=== PATIENT | female | born 1955 | race Caucasian/White ===

== ENCOUNTER → 2020-03-31 15:38 | Outpatient (BNVA) | payer OTHER, SELFPAY | PROVIDERS: PCP Internal Medicine; Referring Provider Internal Medicine; Visit Provider Internal Medicine | DX: I42.9 Cardiomyopathy, unspecified (principal); D68.51 Activated protein C resistance; Z51.81 Encounter for therapeutic drug level monitoring; Z79.01 Long term (current) use of anticoagulants | CPT/HCPCS: 99211 ==

== ENCOUNTER → 2020-03-31 15:38 | Outpatient (BNVA) | payer OTHER, SELFPAY | PROVIDERS: PCP Internal Medicine; Referring Provider Internal Medicine; Visit Provider Internal Medicine | DX: D68.51 Activated protein C resistance (principal); I42.9 Cardiomyopathy, unspecified; Z51.81 Encounter for therapeutic drug level monitoring; Z79.01 Long term (current) use of anticoagulants | CPT/HCPCS: 85610 ==

== ENCOUNTER → 2020-04-11 16:02 | Outpatient (BNVA) | payer OTHER, SELFPAY | PROVIDERS: PCP Internal Medicine; Visit Provider Internal Medicine | DX: D68.51 Activated protein C resistance (principal); I42.9 Cardiomyopathy, unspecified; Z51.81 Encounter for therapeutic drug level monitoring; Z79.01 Long term (current) use of anticoagulants | CPT/HCPCS: 85610; 99211 ==

== ENCOUNTER → 2020-04-18 16:06 | Outpatient (BNVA) | payer OTHER, SELFPAY | PROVIDERS: PCP Internal Medicine; Referring Provider Internal Medicine; Visit Provider Internal Medicine | DX: D68.51 Activated protein C resistance (principal); I42.9 Cardiomyopathy, unspecified; Z51.81 Encounter for therapeutic drug level monitoring; Z79.01 Long term (current) use of anticoagulants | CPT/HCPCS: 85610; 99211 ==

== ENCOUNTER 2020-05-09 16:07 | Outpatient (REF) | payer OTHER, SELFPAY | END 2020-05-09 16:08 | disposition home or self-care (01) | LOC: HO.LAB 16:07 | PROVIDERS: PCP Internal Medicine; Visit Provider Internal Medicine | DX: Z79.01 Long term (current) use of anticoagulants (principal) | CPT/HCPCS: 85610 ==

== ENCOUNTER 2020-05-09 16:22 | Outpatient (REF) | payer OTHER, SELFPAY ==
[2020-05-09 17:51] LABS: INTERNATIONAL NORM RATIO 4.9 (0.9-1.1); Prothrombin Time 59.5 SEC (10.8-13.0)
== END 2020-05-09 16:23 | disposition home or self-care (01) ==
LOC: HO.LAB 16:22
PROVIDERS: Visit Provider Internal Medicine
DX: Z79.01 Long term (current) use of anticoagulants (principal)
CPT/HCPCS: 36415; 85610

== ENCOUNTER → 2020-05-12 15:55 | Outpatient (BNVA) | payer OTHER, SELFPAY | PROVIDERS: PCP Internal Medicine; Visit Provider Internal Medicine | DX: D68.51 Activated protein C resistance (principal); I42.9 Cardiomyopathy, unspecified; Z51.81 Encounter for therapeutic drug level monitoring; Z79.01 Long term (current) use of anticoagulants | CPT/HCPCS: 85610; 99211 ==

== ENCOUNTER → 2020-05-30 15:47 | Outpatient (BNVA) | payer OTHER, SELFPAY | PROVIDERS: PCP Internal Medicine; Visit Provider Internal Medicine | DX: D68.51 Activated protein C resistance (principal); I42.9 Cardiomyopathy, unspecified; Z51.81 Encounter for therapeutic drug level monitoring; Z79.01 Long term (current) use of anticoagulants | CPT/HCPCS: 85610; 99211 ==

== ENCOUNTER → 2020-06-09 09:02 | Outpatient (BNVA) | payer OTHER, SELFPAY | PROVIDERS: PCP Internal Medicine; Visit Provider Internal Medicine | DX: D68.51 Activated protein C resistance (principal); I42.9 Cardiomyopathy, unspecified; Z51.81 Encounter for therapeutic drug level monitoring; Z79.01 Long term (current) use of anticoagulants | CPT/HCPCS: 85610; 99211 ==

== ENCOUNTER → 2020-06-28 15:44 | Outpatient (BNVA) | payer OTHER, SELFPAY | PROVIDERS: PCP Internal Medicine; Visit Provider Internal Medicine | DX: D68.51 Activated protein C resistance (principal); I42.9 Cardiomyopathy, unspecified; Z51.81 Encounter for therapeutic drug level monitoring; Z79.01 Long term (current) use of anticoagulants | CPT/HCPCS: 85610; 99211 ==

== ENCOUNTER → 2020-07-06 13:44 | Outpatient (BNVA) | payer OTHER, SELFPAY | PROVIDERS: PCP Internal Medicine; Visit Provider Internal Medicine | DX: I42.9 Cardiomyopathy, unspecified (principal); D68.51 Activated protein C resistance; Z79.01 Long term (current) use of anticoagulants; Z51.81 Encounter for therapeutic drug level monitoring | CPT/HCPCS: 85610; 99211 ==

== ENCOUNTER → 2020-07-20 15:42 | Outpatient (BNVA) | payer OTHER, SELFPAY | PROVIDERS: PCP Internal Medicine; Visit Provider Internal Medicine | DX: I42.9 Cardiomyopathy, unspecified (principal); D68.51 Activated protein C resistance; Z51.81 Encounter for therapeutic drug level monitoring; Z79.01 Long term (current) use of anticoagulants | CPT/HCPCS: 85610; 99211 ==

== ENCOUNTER → 2020-08-03 16:00 | Outpatient (BNVA) | payer OTHER, SELFPAY | PROVIDERS: PCP Internal Medicine; Visit Provider Internal Medicine | DX: D68.51 Activated protein C resistance (principal); I42.9 Cardiomyopathy, unspecified; Z51.81 Encounter for therapeutic drug level monitoring; Z79.01 Long term (current) use of anticoagulants | CPT/HCPCS: 85610; 99211 ==

== ENCOUNTER → 2020-08-17 15:47 | Outpatient (BNVA) | payer OTHER, SELFPAY | PROVIDERS: PCP Internal Medicine; Visit Provider Internal Medicine | DX: D68.51 Activated protein C resistance (principal); I42.9 Cardiomyopathy, unspecified; Z51.81 Encounter for therapeutic drug level monitoring; Z79.01 Long term (current) use of anticoagulants | CPT/HCPCS: 85610; 99211 ==

== ENCOUNTER → 2020-08-24 15:59 | Outpatient (BNVA) | payer OTHER, SELFPAY | PROVIDERS: PCP Internal Medicine; Visit Provider Internal Medicine | DX: I42.9 Cardiomyopathy, unspecified (principal); Z51.81 Encounter for therapeutic drug level monitoring; Z79.01 Long term (current) use of anticoagulants | CPT/HCPCS: 85610; 99211 ==

== ENCOUNTER → 2020-09-06 16:04 | Outpatient (BNVA) | payer OTHER, SELFPAY | PROVIDERS: PCP Internal Medicine; Visit Provider Internal Medicine | DX: D68.51 Activated protein C resistance (principal); I42.9 Cardiomyopathy, unspecified; Z51.81 Encounter for therapeutic drug level monitoring; Z79.01 Long term (current) use of anticoagulants | CPT/HCPCS: 85610; 99211 ==

== ENCOUNTER → 2020-10-04 16:03 | Outpatient (BNVA) | payer OTHER, SELFPAY | PROVIDERS: PCP Internal Medicine; Visit Provider Internal Medicine | DX: Z86.718 Personal history of other venous thrombosis and embolism (principal); Z79.01 Long term (current) use of anticoagulants | CPT/HCPCS: 85610; 99211 ==

== ENCOUNTER → 2020-10-25 16:01 | Outpatient (BNVA) | payer OTHER, SELFPAY | PROVIDERS: PCP Internal Medicine; Visit Provider Internal Medicine | DX: Z86.718 Personal history of other venous thrombosis and embolism (principal); Z51.81 Encounter for therapeutic drug level monitoring; Z79.01 Long term (current) use of anticoagulants | CPT/HCPCS: 85610; 99211 ==

== ENCOUNTER → 2020-11-17 13:05 | Outpatient (BNVA) | payer OTHER, SELFPAY | PROVIDERS: PCP Internal Medicine; Visit Provider Internal Medicine | DX: Z86.718 Personal history of other venous thrombosis and embolism (principal); Z51.81 Encounter for therapeutic drug level monitoring; Z79.01 Long term (current) use of anticoagulants | CPT/HCPCS: G0248 ==

== ENCOUNTER → 2020-11-21 08:20 | Outpatient (BNVA) | payer OTHER, SELFPAY | PROVIDERS: PCP Internal Medicine; Visit Provider Internal Medicine ==

== ENCOUNTER → 2020-11-28 08:21 | Outpatient (BNVA) | payer OTHER, SELFPAY | PROVIDERS: PCP Internal Medicine; Visit Provider Internal Medicine ==

== ENCOUNTER → 2020-12-05 08:33 | Outpatient (BNVA) | payer OTHER, SELFPAY | PROVIDERS: PCP Internal Medicine; Visit Provider Internal Medicine ==

== ENCOUNTER → 2020-12-12 14:19 | Outpatient (BNVA) | payer OTHER, SELFPAY | PROVIDERS: PCP Internal Medicine; Visit Provider Internal Medicine ==

== ENCOUNTER → 2020-12-26 09:00 | Outpatient (BNVA) | payer OTHER, SELFPAY | PROVIDERS: PCP Internal Medicine; Visit Provider Internal Medicine ==

== ENCOUNTER → 2021-01-02 08:15 | Outpatient (BNVA) | payer OTHER, SELFPAY | PROVIDERS: PCP Internal Medicine; Visit Provider Internal Medicine ==

== ENCOUNTER → 2021-01-16 11:01 | Outpatient (BNVA) | payer OTHER, SELFPAY | PROVIDERS: PCP Internal Medicine; Visit Provider Internal Medicine ==

== ENCOUNTER → 2021-01-30 17:01 | Outpatient (BNVA) | payer OTHER, SELFPAY | PROVIDERS: PCP Internal Medicine; Visit Provider Internal Medicine ==

== ENCOUNTER 2021-02-08 06:46 | Outpatient (REF) | payer OTHER, SELFPAY ==
[2021-02-08 07:38] LABS: MANUAL DIFF FLAG NO
[2021-02-08 07:40] LABS: Basophils Absolute Auto 0.1 X10*3/uL (0.0-0.2); Basophils Percent Auto 0.9 % (0-2); Eosinophils Absolute Auto 0.2 X10*3/uL (0.0-0.4); Hematocrit 36.4 % (37-47); Imm Gran Abs Auto 0.05 X10*3/uL (0.00-0.03); Imm Gran Pct Auto 0.6 % (0.0-0.4); Lymphocytes Absolute Auto 1.2 X10*3/uL (1.2-4.9); Lymphocytes Percent Auto 15.1 % (20-40); Mean Corpuscular Hemoglobin 30.4 pg (27.0-33.0); Mean Corpuscular Volume 92.2 fL (80-98); Mean Platelet Volume 9.9 fL (9.4-12.3); Monocytes Absolute Auto 0.6 X10*3/uL (0.1-1.2); Monocytes Percent Auto 7.7 % (2-11); Neutrophils Absolute Auto 5.7 X10*3/uL (2.0-8.3); Neutrophils Percent Auto 72.7 % (45-73); Platelet Count 241 X10*3/uL (160-400); Red Blood Count 3.95 X10*6/uL (4.20-5.50); Red Cell Distribution Width 13.6 % (11.0-16.0); White Blood Count 7.9 X10*3/uL (4.8-10.8)
[2021-02-08 07:50] LABS: Estimated Average Glucose 131 mg/dL; Hemoglobin A1c % 6.2 %
[2021-02-08 08:04] LABS: Alanine Aminotransferase 17 U/L (0-31); Albumin Level 4.4 g/dL (3.5-5.0); Alkaline Phosphatase 90 U/L (39-117); Anion Gap 14 (12-20); Aspartate Amino Transferase 17 U/L (5-31); Blood Urea Nitrogen 15 mg/dL (9-16); Calcium 9.2 mg/dL (8.4-10.2); Carbon Dioxide 25 mmol/L (22-29); Chloride 105 mmol/L (96-108); Cholesterol 147 mg/dL; Estimated Glomerular Filt Rate > 60; Glucose Random 139 mg/dL (60-115); HDL Cholesterol 41 mg/dL; LDL Cholesterol Calculated 56 mg/dl; Potassium 4.8 mmol/L (3.3-5.1); Sodium 139 mmol/L (135-145); Triglycerides 254 mg/dL
[2021-02-08 08:05] LABS: B Type Natriuretic Peptide 14 pg/mL (<100)
[2021-02-08 08:24] LABS: Free T4 (Free Thyroxine) 1.05 ng/dL (0.71-1.85); Vitamin D 25-OH Total 29.9 ng/mL (>30)
[2021-02-10 11:50] LABS: Folate 11.5 ng/mL (> or = 4.0); Vitamin B12 348 pg/mL (200-900)
== END 2021-02-08 06:47 | disposition home or self-care (01) ==
LOC: HO.LAB 06:46
PROVIDERS: PCP Internal Medicine; Visit Provider Internal Medicine
DX: I42.0 Dilated cardiomyopathy (principal); I10 Essential (primary) hypertension; R73.02 Impaired glucose tolerance (oral); E03.9 Hypothyroidism, unspecified; E78.00 Pure hypercholesterolemia, unspecified
CPT/HCPCS: 36415; 80053; 80061; 82306; 82607; 82746; 83036; 83880; 84439; 84443; 85025

== ENCOUNTER → 2021-02-13 10:10 | Outpatient (BNVA) | payer OTHER, SELFPAY | PROVIDERS: PCP Internal Medicine; Visit Provider Internal Medicine ==

== ENCOUNTER → 2021-02-27 09:13 | Outpatient (BNVA) | payer OTHER, SELFPAY | PROVIDERS: PCP Internal Medicine; Visit Provider Internal Medicine ==

== ENCOUNTER → 2021-03-13 08:50 | Outpatient (BNVA) | payer OTHER, SELFPAY | PROVIDERS: PCP Internal Medicine; Visit Provider Internal Medicine ==

== ENCOUNTER → 2021-03-20 11:24 | Outpatient (BNVA) | payer OTHER, SELFPAY | PROVIDERS: PCP Internal Medicine; Visit Provider Internal Medicine ==

== ENCOUNTER 2021-03-30 12:16 | Outpatient (REF) | payer OTHER, SELFPAY ==
--- NOTE | ~2021-03-30 | XR_ITS ---
EXAMINATION: XR HIP, RIGHT CLINICAL INFORMATION: Right hip pain. COMPARISON: None. TECHNIQUE: 2 views of the right hip. FINDINGS: [id number] joint space narrowing. Small marginal osteophytes. No osseous erosion. No fracture or dislocation. No abnormal soft tissue calcification. XR/XR hip RT min 2V IMPRESSION: [id number] right hip osteoarthritis.
== END 2021-03-30 12:17 | disposition home or self-care (01) ==
LOC: HO.XRAY 12:16
PROVIDERS: PCP Internal Medicine; Visit Provider Internal Medicine
DX: M25.551 Pain in right hip (principal)
CPT/HCPCS: 73502

== ENCOUNTER → 2021-04-03 15:39 | Outpatient (BNVA) | payer OTHER, SELFPAY | PROVIDERS: PCP Internal Medicine; Visit Provider Internal Medicine | DX: I42.9 Cardiomyopathy, unspecified (principal); D68.51 Activated protein C resistance; Z51.81 Encounter for therapeutic drug level monitoring; Z79.01 Long term (current) use of anticoagulants | CPT/HCPCS: Q3014 ==

== ENCOUNTER → 2021-04-10 14:22 | Outpatient (BNVA) | payer OTHER, SELFPAY | PROVIDERS: PCP Internal Medicine; Visit Provider Internal Medicine ==

== ENCOUNTER → 2021-04-17 09:57 | Outpatient (BNVA) | payer OTHER, SELFPAY | PROVIDERS: PCP Internal Medicine; Visit Provider Internal Medicine ==

== ENCOUNTER 2021-05-01 08:20 | Outpatient (REF) | payer MEDICARE, SELFPAY ==
--- NOTE | ~2021-05-01 | MM_ITS ---
EXAMINATION: BONE DENSITOMETRY CLINICAL INDICATION: Other specified disorders of bone density and structure, unspecified site. COMPARISON: Previous BD dated 08/27/2018 and baseline BD dated 10/14/2007 (lumbar spine) and 02/16/2013 (left hip). TECHNIQUE: Using a [employer] DXA System (software version: 13.1) manufactured by [employer], dual-energy x-ray absorptiometry was performed of the lumbar spine and left hip. The images are of good technical quality. Summary results are attached. FINDINGS: AP SPINE L1-L4: Current: BMD 1.103 g/cm2, Z-score 0.0, T-score -0.6, normal, 4.3% increase from previous, 11.8% increase from baseline (<5% change is not significant). Prior: BMD 1.058 g/cm2. Baseline: BMD 0.987 g/cm2. LEFT FEMUR, NECK: Current: BMD 0.921 g/cm2, Z-score 0.0, T-score -0.8, normal. Prior: BMD 0.851 g/cm2. Baseline: BMD 0.874 g/cm2. LEFT FEMUR, TOTAL: Current: BMD 1.048 g/cm2, Z-score 0.8, T-score 0.3, normal, 5.6% increase from previous, 7.5% increase from baseline (<5% change is not significant). Prior: BMD 0.992 g/cm2. Baseline: BMD 0.975 g/cm2. IDENTIFIED RISK FACTORS: Secondary osteoporosis (early menopause). HISTORY OF FRACTURE: None listed. MEDICATIONS: Vitamin D. Bisphosphonates. MM/XR DEXA axial skeleton IMPRESSION: 1. DIAGNOSIS: Normal bone density based on the lowest T-score value of -0.8 in the femoral neck applying World Health Organization criteria. 2. 10-YEAR FRACTURE RISK PREDICTION, FRAX: Major osteoporotic fracture (clinical spine, forearm, hip or shoulder) 7.2%. Hip fracture 0.4%. 3. Treatment Recommendations: NOF guidelines recommend consideration for treatment in postmenopausal women and men age 50 and older presenting with the following: -A hip or vertebral (clinical or morphometric) fracture. -T-score less than or equal to -2.5 at the femoral neck or spine after appropriate evaluation to exclude secondary causes. -Low bone mass at the hip or spine and a 10-year fracture probability by FRAX of greater than or equal to 3% for hip fracture or greater than or equal to 20% for major osteoporotic fracture based on the [place] adapted WHO algorithm. 4. Other Recommendations: All treatment decisions require clinical judgment and consideration of individual patient factors, including patient preferences, comorbidities, previous drug use, risk factors not captured in the FRAX model (e.g. frailty, falls, vitamin D deficiency, increased bone turnover, interval significant decline in bone density) and possible under or overestimation of fracture risk by FRAX. FUTURE SCAN RECOMMENDATION: People with diagnosed cases of osteoporosis or at high risk for fracture should have regular bone mineral density tests. For patients eligible for Medicare, routine testing is allowed once every 2 years. The testing frequency can be increased to one year for patients who have rapidly progressing disease, those who are receiving or discontinuing medical therapy to restore bone mass, or have additional risk factors.
== END 2021-05-01 08:21 | disposition home or self-care (01) ==
LOC: HO.MAMMO 08:20
PROVIDERS: Visit Provider Internal Medicine
DX: Z13.820 Encounter for screening for osteoporosis (principal); M85.80 Other specified disorders of bone density and structure, unspecified site; Z78.0 Asymptomatic menopausal state; Z79.899 Other long term (current) drug therapy
CPT/HCPCS: 77080

== ENCOUNTER → 2021-05-15 13:43 | Outpatient (BNVA) | payer MEDICARE, SELFPAY | PROVIDERS: PCP Internal Medicine; Visit Provider Internal Medicine ==

== ENCOUNTER → 2021-05-29 10:10 | Outpatient (BNVA) | payer MEDICARE, SELFPAY | PROVIDERS: PCP Internal Medicine; Visit Provider Internal Medicine ==

== ENCOUNTER → 2021-06-12 10:07 | Outpatient (BNVA) | payer MEDICARE, SELFPAY | PROVIDERS: PCP Internal Medicine; Visit Provider Internal Medicine ==

== ENCOUNTER → 2021-06-26 08:48 | Outpatient (BNVA) | payer MEDICARE, SELFPAY | PROVIDERS: PCP Internal Medicine; Visit Provider Internal Medicine ==

== ENCOUNTER → 2021-07-10 13:19 | Outpatient (BNVA) | payer MEDICARE, SELFPAY | PROVIDERS: PCP Internal Medicine; Visit Provider Internal Medicine | DX: I42.9 Cardiomyopathy, unspecified (principal); D68.51 Activated protein C resistance; Z51.81 Encounter for therapeutic drug level monitoring; Z79.01 Long term (current) use of anticoagulants | CPT/HCPCS: Q3014 ==

== ENCOUNTER → 2021-07-31 10:04 | Outpatient (BNVA) | payer MEDICARE, SELFPAY | PROVIDERS: PCP Internal Medicine; Visit Provider Internal Medicine | DX: Z13.89 Encounter for screening for other disorder (principal) ==

== ENCOUNTER 2021-08-10 11:57 | Outpatient (REF) | payer MEDICARE, SELFPAY ==
[2021-08-10 12:42] LABS: MANUAL DIFF FLAG NO
[2021-08-10 12:51] LABS: Basophils Absolute Auto 0.1 X10*3/uL (0.0-0.2); Basophils Percent Auto 0.8 % (0-2); Eosinophils Absolute Auto 0.2 X10*3/uL (0.0-0.4); Eosinophils Percent Auto 2.8 % (0-4); Hematocrit 37.9 % (37.0-47.0); Hemoglobin 12.6 g/dl (12.0-16.0); Imm Gran Abs Auto 0.04 X10*3/uL (0.00-0.03); Imm Gran Pct Auto 0.6 % (0.0-0.4); Lymphocytes Absolute Auto 1.3 X10*3/uL (1.2-4.9); Lymphocytes Percent Auto 17.5 % (20-40); Mean Corpuscular HGB Conc 33.2 g/dl (31.0-35.0); Mean Corpuscular Hemoglobin 30.4 pg (27.0-33.0); Mean Corpuscular Volume 91.5 fL (80.0-98.0); Mean Platelet Volume 9.6 fL (9.4-12.3); Monocytes Absolute Auto 0.5 X10*3/uL (0.1-1.2); Monocytes Percent Auto 6.7 % (2-11); Neutrophils Absolute Auto 5.1 x10*3/uL (2.0-8.3); Neutrophils Percent Auto 71.6 % (45-73); Platelet Count 261 X10*3/uL (160-400); Red Blood Count 4.14 X10*6/uL (4.20-5.50); Red Cell Distribution Width 13.3 % (11.0-16.0); White Blood Count 7.2 X10*3/uL (4.8-10.8)
[2021-08-10 13:12] LABS: Estimated Average Glucose 137 mg/dL; Hemoglobin A1C 150.0838 umol/L; Hemoglobin A1c % 6.4 %
[2021-08-10 13:23] LABS: Alanine Aminotransferase 21 U/L (0-31); Albumin Level 4.5 g/dL (3.5-5.0); Alkaline Phosphatase 98 U/L (39-117); Anion Gap 16 (12-20); Aspartate Amino Transferase 20 U/L (5-31); Bilirubin Total 1.2 mg/dL (0.0-1.0); Blood Urea Nitrogen 14 mg/dL (9-16); Calcium 9.4 mg/dL (8.4-10.2); Carbon Dioxide 23 mmol/L (22-29); Chloride 104 mmol/L (96-108); Cholesterol 173 mg/dL; Estimated Glomerular Filt Rate > 60; Glucose Random 108 mg/dL (60-115); HDL Cholesterol 43 mg/dL; LDL Cholesterol Calculated 85 mg/dl; Potassium 4.6 mmol/L (3.3-5.1); Sodium 138 mmol/L (135-145); Total Protein 7.1 g/dL (6.5-8.0); Triglycerides 229 mg/dL
[2021-08-10 14:04] LABS: Free T4 (Free Thyroxine) 1.13 ng/dL (0.71-1.85)
== END 2021-08-10 11:58 | disposition home or self-care (01) ==
LOC: HO.LAB 11:57
PROVIDERS: PCP Internal Medicine; Visit Provider Internal Medicine
DX: R73.02 Impaired glucose tolerance (oral) (principal); E03.9 Hypothyroidism, unspecified; E78.00 Pure hypercholesterolemia, unspecified
CPT/HCPCS: 36415; 80053; 80061; 83036; 84439; 84443; 85025

== ENCOUNTER → 2021-08-14 12:05 | Outpatient (BNVA) | payer MEDICARE, SELFPAY | PROVIDERS: PCP Internal Medicine; Visit Provider Internal Medicine | DX: I42.9 Cardiomyopathy, unspecified (principal); D68.51 Activated protein C resistance; Z51.81 Encounter for therapeutic drug level monitoring; Z79.01 Long term (current) use of anticoagulants | CPT/HCPCS: Q3014 ==

== ENCOUNTER → 2021-08-28 11:15 | Outpatient (BNVA) | payer MEDICARE, SELFPAY | PROVIDERS: PCP Internal Medicine; Visit Provider Internal Medicine | DX: D68.51 Activated protein C resistance (principal); I42.9 Cardiomyopathy, unspecified; Z51.81 Encounter for therapeutic drug level monitoring; Z79.01 Long term (current) use of anticoagulants | CPT/HCPCS: Q3014 ==

== ENCOUNTER → 2021-08-31 10:09 | Outpatient (BNVA) | payer MEDICARE, SELFPAY | PROVIDERS: PCP Internal Medicine; Visit Provider Internal Medicine | DX: I42.9 Cardiomyopathy, unspecified (principal); D68.51 Activated protein C resistance; Z51.81 Encounter for therapeutic drug level monitoring; Z79.01 Long term (current) use of anticoagulants | CPT/HCPCS: Q3014 ==

== ENCOUNTER → 2021-09-04 09:51 | Outpatient (BNVA) | payer MEDICARE, SELFPAY | PROVIDERS: PCP Internal Medicine; Visit Provider Internal Medicine | DX: Z13.89 Encounter for screening for other disorder (principal) ==

== ENCOUNTER → 2021-09-18 14:25 | Outpatient (BNVA) | payer MEDICARE, SELFPAY | PROVIDERS: PCP Internal Medicine; Visit Provider Internal Medicine | DX: Z13.89 Encounter for screening for other disorder (principal) ==

== ENCOUNTER → 2021-10-02 09:20 | Outpatient (BNVA) | payer MEDICARE, SELFPAY | PROVIDERS: PCP Internal Medicine; Visit Provider Internal Medicine | DX: Z13.89 Encounter for screening for other disorder (principal) ==

== ENCOUNTER → 2021-10-16 11:31 | Outpatient (BNVA) | payer MEDICARE, SELFPAY | PROVIDERS: PCP Internal Medicine; Visit Provider Internal Medicine | DX: I42.9 Cardiomyopathy, unspecified (principal); D68.51 Activated protein C resistance; Z79.01 Long term (current) use of anticoagulants; Z51.81 Encounter for therapeutic drug level monitoring | CPT/HCPCS: Q3014 ==

== ENCOUNTER → 2021-10-30 09:51 | Outpatient (BNVA) | payer MEDICARE, SELFPAY | PROVIDERS: PCP Internal Medicine; Visit Provider Internal Medicine | DX: Z13.89 Encounter for screening for other disorder (principal) ==

== ENCOUNTER → 2021-11-13 13:56 | Outpatient (BNVA) | payer MEDICARE, SELFPAY | PROVIDERS: PCP Internal Medicine; Visit Provider Internal Medicine | DX: I42.9 Cardiomyopathy, unspecified (principal); D68.51 Activated protein C resistance; Z79.01 Long term (current) use of anticoagulants; Z51.81 Encounter for therapeutic drug level monitoring | CPT/HCPCS: 85610; 99211 ==

== ENCOUNTER → 2021-11-20 09:20 | Outpatient (BNVA) | payer MEDICARE, SELFPAY | PROVIDERS: PCP Internal Medicine; Visit Provider Internal Medicine | DX: Z79.01 Long term (current) use of anticoagulants (principal) ==

== ENCOUNTER → 2021-12-04 08:46 | Outpatient (BNVA) | payer MEDICARE, SELFPAY | PROVIDERS: PCP Internal Medicine; Visit Provider Internal Medicine | DX: D68.51 Activated protein C resistance (principal); I42.9 Cardiomyopathy, unspecified; Z79.01 Long term (current) use of anticoagulants; Z51.81 Encounter for therapeutic drug level monitoring | CPT/HCPCS: Q3014 ==

== ENCOUNTER → 2021-12-18 11:22 | Outpatient (BNVA) | payer MEDICARE, SELFPAY | PROVIDERS: PCP Internal Medicine; Visit Provider Internal Medicine | DX: I42.9 Cardiomyopathy, unspecified (principal); D68.51 Activated protein C resistance; Z79.01 Long term (current) use of anticoagulants; Z51.81 Encounter for therapeutic drug level monitoring | CPT/HCPCS: Q3014 ==

== ENCOUNTER 2022-02-07 09:13 | Outpatient (REF) | payer MEDICARE, SELFPAY ==
[2022-02-07 09:38] LABS: MANUAL DIFF FLAG NO
[2022-02-07 10:39] LABS: Basophils Absolute Auto 0.1 X10*3/uL (0.0-0.2); Basophils Percent Auto 1.1 % (0-2); Eosinophils Absolute Auto 0.3 X10*3/uL (0.0-0.4); Eosinophils Percent Auto 3.7 % (0-4); Hematocrit 37.1 % (37.0-47.0); Hemoglobin 12.4 g/dl (12.0-16.0); Imm Gran Abs Auto 0.03 X10*3/uL (0.00-0.03); Imm Gran Pct Auto 0.4 % (0.0-0.4); Lymphocytes Absolute Auto 1.3 X10*3/uL (1.2-4.9); Mean Corpuscular HGB Conc 33.4 g/dl (31.0-35.0); Mean Corpuscular Hemoglobin 30.2 pg (27.0-33.0); Mean Corpuscular Volume 90.5 fL (80.0-98.0); Mean Platelet Volume 9.9 fL (9.4-12.3); Monocytes Absolute Auto 0.5 X10*3/uL (0.1-1.2); Neutrophils Absolute Auto 5.4 x10*3/uL (2.0-8.3); Neutrophils Percent Auto 71.8 % (45-73); Platelet Count 244 X10*3/uL (160-400); Red Cell Distribution Width 13.8 % (11.0-16.0); White Blood Count 7.5 X10*3/uL (4.8-10.8)
[2022-02-07 10:43] LABS: Estimated Average Glucose 128 mg/dL; Hemoglobin A1c % 6.1 %
[2022-02-07 11:18] LABS: Alanine Aminotransferase 13 U/L (0-31); Albumin Level 4.5 g/dL (3.5-5.0); Alkaline Phosphatase 99 U/L (39-117); Anion Gap 16 (12-20); Aspartate Amino Transferase 15 U/L (5-31); Bilirubin Total 1.1 mg/dL (0.0-1.0); Blood Urea Nitrogen 16 mg/dL (9-16); Calcium 9.2 mg/dL (8.4-10.2); Carbon Dioxide 24 mmol/L (22-29); Chloride 104 mmol/L (96-108); Cholesterol 171 mg/dL; Estimated Glomerular Filt Rate > 60; Glucose Random 122 mg/dL (60-115); HDL Cholesterol 46 mg/dL; LDL Cholesterol Calculated 74 mg/dl; Potassium 4.2 mmol/L (3.3-5.1); Sodium 140 mmol/L (135-145); Total Protein 7.1 g/dL (6.5-8.0); Triglycerides 258 mg/dL
[2022-02-07 11:41] LABS: Free T4 (Free Thyroxine) 1.11 ng/dL (0.71-1.85); Thyroid Stimulating Hormone 1.66 uIU/mL (0.32-4.0)
== END 2022-02-07 09:14 | disposition home or self-care (01) ==
LOC: HO.LAB 09:13
PROVIDERS: PCP Internal Medicine; Visit Provider Internal Medicine
DX: R73.02 Impaired glucose tolerance (oral) (principal); E78.00 Pure hypercholesterolemia, unspecified
CPT/HCPCS: 36415; 80053; 80061; 83036; 84439; 84443; 85025

== ENCOUNTER → 2022-02-26 10:22 | Outpatient (BNVA) | payer MEDICARE, SELFPAY | PROVIDERS: PCP Internal Medicine; Visit Provider Internal Medicine | DX: D68.51 Activated protein C resistance (principal); I42.9 Cardiomyopathy, unspecified; Z51.81 Encounter for therapeutic drug level monitoring; Z79.01 Long term (current) use of anticoagulants | CPT/HCPCS: Q3014 ==

== ENCOUNTER → 2022-03-01 10:18 | Outpatient (BNVA) | payer MEDICARE, SELFPAY | PROVIDERS: PCP Internal Medicine; Visit Provider Internal Medicine | DX: I42.9 Cardiomyopathy, unspecified (principal); D68.51 Activated protein C resistance; Z79.01 Long term (current) use of anticoagulants; Z51.81 Encounter for therapeutic drug level monitoring | CPT/HCPCS: 99211 ==

== ENCOUNTER → 2022-03-12 15:01 | Outpatient (BNVA) | payer MEDICARE, SELFPAY | PROVIDERS: PCP Internal Medicine; Visit Provider Internal Medicine | DX: I42.9 Cardiomyopathy, unspecified (principal); D68.51 Activated protein C resistance; Z51.81 Encounter for therapeutic drug level monitoring; Z79.01 Long term (current) use of anticoagulants | CPT/HCPCS: Q3014 ==

== ENCOUNTER → 2022-04-09 11:48 | Outpatient (BNVA) | payer MEDICARE, SELFPAY | PROVIDERS: PCP Internal Medicine; Visit Provider Internal Medicine | DX: I42.9 Cardiomyopathy, unspecified (principal); D68.51 Activated protein C resistance; Z79.01 Long term (current) use of anticoagulants; Z51.81 Encounter for therapeutic drug level monitoring | CPT/HCPCS: Q3014 ==

== ENCOUNTER → 2022-04-16 12:49 | Outpatient (BNVA) | payer MEDICARE, SELFPAY | PROVIDERS: PCP Internal Medicine; Visit Provider Internal Medicine | DX: I42.9 Cardiomyopathy, unspecified (principal); D68.51 Activated protein C resistance; Z51.81 Encounter for therapeutic drug level monitoring; Z79.01 Long term (current) use of anticoagulants | CPT/HCPCS: Q3014 ==

== ENCOUNTER → 2022-06-25 14:48 | Outpatient (BNVA) | payer MEDICARE, SELFPAY | PROVIDERS: PCP Internal Medicine; Visit Provider Internal Medicine | DX: Z79.01 Long term (current) use of anticoagulants (principal) ==

== ENCOUNTER → 2022-07-09 10:24 | Outpatient (BNVA) | payer MEDICARE, SELFPAY | PROVIDERS: PCP Internal Medicine; Visit Provider Internal Medicine | DX: Z79.01 Long term (current) use of anticoagulants (principal) ==

== ENCOUNTER → 2022-07-23 10:36 | Outpatient (BNVA) | payer MEDICARE, SELFPAY | PROVIDERS: PCP Internal Medicine; Visit Provider Internal Medicine | DX: Z79.01 Long term (current) use of anticoagulants (principal) ==

== ENCOUNTER → 2022-08-06 09:38 | Outpatient (BNVA) | payer MEDICARE, SELFPAY | PROVIDERS: PCP Internal Medicine; Visit Provider Internal Medicine | DX: Z79.01 Long term (current) use of anticoagulants (principal) ==

== ENCOUNTER → 2022-08-20 12:00 | Outpatient (BNVA) | payer MEDICARE, SELFPAY | PROVIDERS: PCP Internal Medicine; Visit Provider Internal Medicine | DX: Z79.01 Long term (current) use of anticoagulants (principal) ==

== ENCOUNTER → 2022-09-03 10:04 | Outpatient (BNVA) | payer MEDICARE, SELFPAY | PROVIDERS: PCP Internal Medicine; Visit Provider Internal Medicine | DX: Z79.01 Long term (current) use of anticoagulants (principal) ==

== ENCOUNTER → 2022-09-17 10:31 | Outpatient (BNVA) | payer MEDICARE, SELFPAY | PROVIDERS: PCP Internal Medicine; Visit Provider Internal Medicine | DX: Z79.01 Long term (current) use of anticoagulants (principal) ==

== ENCOUNTER → 2022-10-01 16:16 | Outpatient (BNVA) | payer MEDICARE, SELFPAY | PROVIDERS: PCP Internal Medicine; Visit Provider Internal Medicine ==

== ENCOUNTER 2022-10-03 07:59 | Outpatient (REF) | payer MEDICARE, SELFPAY ==
[2022-10-03 08:12] LABS: MANUAL DIFF FLAG NO
[2022-10-03 08:25] LABS: Basophils Absolute Auto 0.1 X10*3/uL (0.0-0.2); Basophils Percent Auto 0.7 % (0-2); Eosinophils Absolute Auto 0.3 X10*3/uL (0.0-0.4); Eosinophils Percent Auto 3.5 % (0-4); Hemoglobin 12.6 g/dl (12.0-16.0); Imm Gran Abs Auto 0.03 X10*3/uL (0.00-0.03); Imm Gran Pct Auto 0.4 % (0.0-0.4); Lymphocytes Absolute Auto 1.4 X10*3/uL (1.2-4.9); Lymphocytes Percent Auto 18.8 % (20-40); Mean Corpuscular HGB Conc 33.2 g/dl (31.0-35.0); Mean Corpuscular Hemoglobin 30.4 pg (27.0-33.0); Mean Corpuscular Volume 91.6 fL (80.0-98.0); Mean Platelet Volume 9.8 fL (9.4-12.3); Monocytes Absolute Auto 0.6 X10*3/uL (0.1-1.2); Monocytes Percent Auto 7.4 % (2-11); Neutrophils Absolute Auto 5.3 x10*3/uL (2.0-8.3); Neutrophils Percent Auto 69.2 % (45-73); Platelet Count 245 X10*3/uL (160-400); Red Blood Count 4.15 X10*6/uL (4.20-5.50); Red Cell Distribution Width 13.7 % (11.0-16.0); White Blood Count 7.7 X10*3/uL (4.8-10.8)
[2022-10-03 08:49] LABS: B Type Natriuretic Peptide 19 pg/mL (<100)
[2022-10-03 09:00] LABS: Alanine Aminotransferase 16 U/L (0-31); Albumin Level 4.5 g/dL (3.5-5.0); Alkaline Phosphatase 102 U/L (39-117); Anion Gap 19 (12-20); Aspartate Amino Transferase 19 U/L (5-31); Bilirubin Total 2.2 mg/dL (0.0-1.0); Blood Urea Nitrogen 16 mg/dL (9-16); Calcium 9.2 mg/dL (8.4-10.2); Carbon Dioxide 23 mmol/L (22-29); Chloride 104 mmol/L (96-108); Cholesterol 174 mg/dL; Estimated Glomerular Filt Rate > 60; Glucose Random 125 mg/dL (60-115); HDL Cholesterol 45 mg/dL; LDL Cholesterol Calculated 76 mg/dl; Potassium 4.5 mmol/L (3.3-5.1); Sodium 141 mmol/L (135-145); Total Protein 6.9 g/dL (6.5-8.0); Triglycerides 267 mg/dL
[2022-10-03 09:28] LABS: Free T4 (Free Thyroxine) 1.04 ng/dL (0.71-1.85); Thyroid Stimulating Hormone 4.82 uIU/mL (0.32-4.0); Vitamin B12 419 pg/mL (200-900); Vitamin D 25-OH Total 37.2 ng/mL (>30)
[2022-10-03 09:38] LABS: Estimated Average Glucose 134 mg/dL; Hemoglobin A1c % 6.3 %
== END 2022-10-03 08:00 | disposition home or self-care (01) ==
LOC: HO.LAB 07:59
PROVIDERS: PCP Internal Medicine; Visit Provider Internal Medicine
DX: R73.02 Impaired glucose tolerance (oral) (principal); E78.00 Pure hypercholesterolemia, unspecified; I42.0 Dilated cardiomyopathy; E03.9 Hypothyroidism, unspecified; M85.80 Other specified disorders of bone density and structure, unspecified site; E55.9 Vitamin D deficiency, unspecified
CPT/HCPCS: 36415; 80053; 80061; 82306; 82607; 82746; 83036; 83880; 84439; 84443; 85025

== ENCOUNTER → 2022-10-08 09:05 | Outpatient (BNVA) | payer MEDICARE, SELFPAY | PROVIDERS: PCP Internal Medicine; Visit Provider Internal Medicine ==

== ENCOUNTER → 2022-10-22 10:06 | Outpatient (BNVA) | payer MEDICARE, SELFPAY | PROVIDERS: PCP Internal Medicine; Visit Provider Internal Medicine ==

== ENCOUNTER 2022-10-24 09:56 | Outpatient (REF) | payer MEDICARE, SELFPAY ==
--- NOTE | ~2022-10-24 | XR_ITS ---
EXAMINATION: XR ABDOMEN KUB CLINICAL INDICATION: Renal calculus. COMPARISON: Renal ultrasound dated 06/13/2016; CT abdomen and pelvis dated 10/23/2015. TECHNIQUE: AP view of the abdomen. FINDINGS: The bowel gas pattern is normal with no evidence of ileus or obstruction. No unusual soft tissue calcifications are noted. Specifically, no definite urinary calculi are seen. There are degenerative changes of the thoracolumbar spine. No acute osseous abnormality is seen. A calcified right buttock granuloma is suspected, unchanged from right hip radiographs dated 03/30/2021.. XR/XR KUB IMPRESSION: Unremarkable examination. No definite urinary calculus is appreciated, with imaging limited by overlapping bowel contents.
== END 2022-10-24 09:57 | disposition home or self-care (01) ==
LOC: HO.XRAY 09:56
PROVIDERS: PCP Internal Medicine; Visit Provider Physician Assistant
DX: N20.0 Calculus of kidney (principal)
CPT/HCPCS: 74018

== ENCOUNTER → 2022-11-05 14:23 | Outpatient (BNVA) | payer MEDICARE, SELFPAY | PROVIDERS: PCP Internal Medicine; Visit Provider Internal Medicine ==

== ENCOUNTER 2022-11-07 11:35 | Outpatient (REF) | payer MEDICARE, SELFPAY ==
[2022-11-07 12:14] LABS: Urine Cytology See Pathology rpt
== END 2022-11-07 11:36 | disposition home or self-care (01) ==
LOC: HO.LAB 11:35
PROVIDERS: PCP Internal Medicine; Visit Provider Physician Assistant
DX: R31.0 Gross hematuria (principal)
CPT/HCPCS: 88112

== ENCOUNTER → 2022-11-19 10:36 | Outpatient (BNVA) | payer MEDICARE, SELFPAY | PROVIDERS: PCP Internal Medicine; Visit Provider Internal Medicine | DX: D68.51 Activated protein C resistance (principal); I42.9 Cardiomyopathy, unspecified; Z79.01 Long term (current) use of anticoagulants; Z51.81 Encounter for therapeutic drug level monitoring | CPT/HCPCS: 85610; 99211 ==

== ENCOUNTER → 2022-12-03 10:01 | Outpatient (BNVA) | payer MEDICARE, SELFPAY | PROVIDERS: PCP Internal Medicine; Visit Provider Internal Medicine ==

== ENCOUNTER → 2022-12-17 09:47 | Outpatient (BNVA) | payer MEDICARE, SELFPAY | PROVIDERS: PCP Internal Medicine; Visit Provider Internal Medicine ==

== ENCOUNTER → 2023-01-01 13:41 | Outpatient (BNVA) | payer MEDICARE, SELFPAY | PROVIDERS: PCP Internal Medicine; Visit Provider Internal Medicine ==

== ENCOUNTER → 2023-01-14 13:03 | Outpatient (BNVA) | payer MEDICARE, SELFPAY | PROVIDERS: PCP Internal Medicine; Visit Provider Internal Medicine ==

== ENCOUNTER → 2023-01-28 09:51 | Outpatient (BNVA) | payer MEDICARE, SELFPAY | PROVIDERS: PCP Internal Medicine; Visit Provider Internal Medicine ==

== ENCOUNTER → 2023-02-11 10:21 | Outpatient (BNVA) | payer MEDICARE, SELFPAY | PROVIDERS: PCP Internal Medicine; Visit Provider Internal Medicine ==

== ENCOUNTER → 2023-02-25 09:49 | Outpatient (BNVA) | payer MEDICARE, SELFPAY | PROVIDERS: PCP Internal Medicine; Visit Provider Internal Medicine ==

== ENCOUNTER 2023-03-10 10:01 | Outpatient (REF) | payer MEDICARE, SELFPAY ==
[2023-03-10 11:27] LABS: Alanine Aminotransferase 13 U/L (0-31); Albumin Level 4.4 g/dL (3.5-5.0); Alkaline Phosphatase 87 U/L (39-117); Anion Gap 13 (12-20); Aspartate Amino Transferase 16 U/L (5-31); Bilirubin Total 1.1 mg/dL (0.0-1.0); Blood Urea Nitrogen 15 mg/dL (9-16); Calcium 9.7 mg/dL (8.4-10.2); Carbon Dioxide 26 mmol/L (22-29); Chloride 107 mmol/L (96-108); Cholesterol 157 mg/dL (<200); Estimated Glomerular Filt Rate > 60; Glucose Random 119 mg/dL (60-115); HDL Cholesterol 44 mg/dL (>40); LDL Cholesterol Calculated 65 mg/dL (<100); Potassium 4.4 mmol/L (3.3-5.1); Sodium 142 mmol/L (135-145); Total Protein 7.1 g/dL (6.5-8.0); Triglycerides 242 mg/dL (<150)
[2023-03-10 11:43] LABS: Free T4 (Free Thyroxine) 0.95 ng/dL (0.71-1.85); Thyroid Stimulating Hormone 1.81 uIU/mL (0.32-4.0)
== END 2023-03-10 10:02 | disposition home or self-care (01) ==
LOC: HO.LAB 10:01
PROVIDERS: PCP Internal Medicine; Visit Provider Internal Medicine
DX: E03.9 Hypothyroidism, unspecified (principal); E78.00 Pure hypercholesterolemia, unspecified
CPT/HCPCS: 36415; 80053; 80061; 84439; 84443

== ENCOUNTER → 2023-03-11 08:06 | Outpatient (BNVA) | payer MEDICARE, SELFPAY | PROVIDERS: PCP Internal Medicine; Visit Provider Internal Medicine ==

== ENCOUNTER 2023-03-13 11:35 | Outpatient (AMB) | payer MEDICARE, SELFPAY ==
[2023-03-13 11:55] VITALS: BP 124/70; PULSE 74; O2SAT 94; BMI 34.3
--- NOTE | 2023-03-13 11:55 | MHC.PC.OV ---
Vital Signs 03/13/23 11:55 Height 5 ft 4 in Weight 90.718 kg BMI 34.3 BP 124/70 Blood Pressure Location Lt brachial Position Sitting Pulse 74 Pulse Source Pulse Oximeter Pulse Oximetry (%) 94 Oxygen Delivery Method Room Air Intake Visit Reasons: 5 month f/u Allergies levofloxacin [From Levaquin] Allergy (Mild, Verified 03/13/23 11:55) NAUSEA,WEAKNESS penicillin G [Penicillin G] Allergy (Mild, Verified 03/13/23 11:55) breathing issue as a child penicillin V Allergy (Unknown, Verified 03/13/23 11:55) breathing issue as a child Tobacco use date assessed: 10/07/22 Fall risk assessment: No Falls in past year Last assessed Fall Risk: 03/13/23 Dental Screening Dental Screen Date: 03/13/23 Did you have a dental visit in the last 12 months?: Yes Did you have a dental problem in the last 6 months where you did not have access to dental care?: No Was dental information given to patient?: Patient has dentist HPI 5 month f/u HPI Details 68-year-old obese female with a history of cardiomyopathy hypertension hypothyroidism hypercholesterolemia impaired glucose tolerance and generalized anxiety disorder last seen in September 2022 patient is here for follow-up. Mammogram is up-to-date colonoscopy up-to-date. 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 x-ray showing thumb and transient nondisplaced fracture through the thumb there is arthritis extra-articular fracture of the distal phalanx proximal to the nail bed thumb stable no casting did custom splint created [facility] Medical History Adult general medical exam Asthma Cardiomyopathy Ductal carcinoma in situ (DCIS) of left breast Factor 5 Leiden mutation, heterozygous Generalized anxiety disorder Hypercholesterolemia Hypertension Hypothyroid Impaired glucose tolerance Left renal stone Obesity (BMI 30-39.9) Surgical History History of carpal tunnel release History of cataract surgery History of colonoscopy History of foot surgery History of lithotripsy History of lumpectomy of left breast History of surgery History of urologic surgery Family History Father Myocardial infarction Mother No problems noted. Maternal Grandfather Myocardial infarction CVD (cardiovascular disease) Maternal Uncle Myocardial infarction CVD (cardiovascular disease) Brother In good health Sister In good health Mental health disorder Sister In good health Son In good health Substance use disorder Son In good health Social History Housing: House Alcohol intake: current Patient Tobacco Use Status: Never used Tobacco e-Cigarette/Vaping Use: Never Used Second Hand Smoke Exposure: No service: No Current occupational status: employed Cognitive needs: No Hearing needs: No Vision needs: No Questionnaire PHQ-9 Over the last 2 weeks, how often have you been bothered by any of the following problems? 1. Little interest or pleasure in doing things: not at all 2. Feeling down, depressed, or hopeless: not at all 3. Trouble falling or staying asleep, or sleeping too much: several days 4. Feeling tired or having little energy: not at all 5. Poor appetite or overeating: not at all 6. Feeling bad about yourself - or that you are a failure or have let yourself or your family down: not at all 7. Trouble concentrating on things, such as reading the newspaper or watching television: not at all 8. Moving or speaking so slowly that other people could have noticed. Or the opposite - being so fidgety or restless that you have been moving around a lot more than usual: not at all 9. Thoughts that you would be better off or of hurting yourself in some way: not at all Total score: 1 Depression Screening Interpretation: Negative 67166 - PHQ-9 Billing: Yes Source: Developed by Drs. Momo Zhang, Samia Mckeon, Ilan Bhakta and colleagues, with an educational esau from [employer]. Thrive Questionnaire Date Thrive assessed: 10/07/22 AUDIT C Alcohol Use Questionnaire (AUDIT-C) 1. How often do you have a drink containing alcohol?: 2-4 times a month 2. How many drinks containing alcohol do you have on a typical day when you are drinking?: 1 or 2 3. How often do you have six or more drinks on one occasion?: Never Total Score: 2 Score Reviewed/Action Taken: No SALAS-7 AMB Questionnaire SALAS-7 Date SALAS - 7 assessed: 11/14/22 Source: Developed by Drs. Momo Zhang, Samia Mckeon, Ilan Bhakta and colleagues, with an educational esau from [employer]. Physical exam (Primary Care) Vital Signs: Last Vital Signs Pulse 74 03/13/23 11:55 BP 124/70 03/13/23 11:55 Pulse Ox 94 03/13/23 11:55 Oxygen Delivery Method Room Air 03/13/23 11:55 BMI result Body Mass Index 34.3 Tobacco/Smoking Status: Tobacco use Status Tobacco use date assessed 10/07/22 03/13/23 11:59 Patient Tobacco Use Status Never used Tobacco 03/13/23 11:59 e-Cigarette/Vaping Use Never Used 03/13/23 11:59 PHQ-9: PHQ-9 Score PHQ-9: Total score 1 03/13/23 12:15 Depression Screening Interpretation: Negative Thrive Assessment: Date of Thrive Assessment Date Thrive assessed 10/07/22 03/13/23 11:59 Const General: alert; No acute distress Eyes Conjunctivae: conjunctivae normal Resp Auscultation: clear to auscultation bilaterally Cardio Rate: regular rate Rhythm: regular rhythm GI Inspection: Yes normal to inspection Extrem General: Yes normal to inspection and No edema Results AMB Hemoglobin A1c AMB Hemoglobin A1c 6.3 % Last Edit by SHERRIE Wallace on 03/13/23 12:31 Assessment and Plan Assessment & Plan (1) Fracture of thumb, left, closed: Code(s): S62.502A - Fracture of unspecified phalanx of left thumb, initial encounter for closed fracture Plan: Patient follows up with Orthopedics Dr. Mckeon. Stable (2) Impaired glucose tolerance: Code(s): R73.02 - Impaired glucose tolerance (oral) Plan: Decrease the amount of carbohydrate intake, pasta, bread, rice and potatoes are all sugar and that is aside from all the sweet stuff, remember that fruits are good but they are Sweet also. (3) Hypertension: Code(s): I10 - Essential (primary) hypertension Qualifiers: Hypertension type: essential hypertension Qualified Code(s): I10 - Essential (primary) hypertension Plan: Continue with blood pressure medication. Decrease salt intake and exercise continue with lisinopril 10 mg once a day spironolactone 25 mg once a day carvedilol 25 mg twice a day (4) Hypothyroid: Code(s): E03.9 - Hypothyroidism, unspecified Qualifiers: Hypothyroidism type: acquired Qualified Code(s): E03.9 - Hypothyroidism, unspecified Plan: Continue with thyroid medication (5) Hypercholesterolemia: Code(s): E78.00 - Pure hypercholesterolemia, unspecified Plan: Avoid fried foods, chicken skin, eggs, butter margarine, pastries and meat. Be it pork or beef they have a lot of cholesterol LDL goal of less than 70. Patient is on simvastatin 40 mg once a day (6) Obesity (BMI 30-39.9): Code(s): E66.9 - Obesity, unspecified Plan: Diet and exercise (7) Cardiomyopathy: Comment: Echocardiogram October 2019 EF 55-60% paradoxical synergistic septal wall consistent with left bundle branch block Code(s): I42.9 - Cardiomyopathy, unspecified Qualifiers: Cardiomyopathy type: dilated Qualified Code(s): I42.0 - Dilated cardiomyopathy Plan: Continue with present medication (8) Factor 5 Leiden mutation, heterozygous: Code(s): D68.51 - Activated protein C resistance Plan: Continue with anticoagulation (9) Generalized anxiety disorder: Code(s): F41.1 - Generalized anxiety disorder Plan: Stable Orders: Orders Hemoglobin A1c 6 Months R73.02 - Impaired glucose tolerance (oral) Thyroid Stimulating Hormone 6 Months R73.02 - Impaired glucose tolerance (oral) Complete Blood Count Auto Diff 6 Months R73.02 - Impaired glucose tolerance (oral) Vitamin B12 and Folate 6 Months R73.02 - Impaired glucose tolerance (oral) AMB Hemoglobin A1c Today R73.02 - Impaired glucose tolerance (oral) Free T4 (Free Thyroxine) 6 Months R73.02 - Impaired glucose tolerance (oral) Comprehensive Met. Panel 6 Months R73.02 - Impaired glucose tolerance (oral) Vitamin D 25-OH Total 6 Months R73.02 - Impaired glucose tolerance (oral) Lipid Panel 6 Months E78.00 - Pure hypercholesterolemia, unspecified, R73.02 - Impaired glucose tolerance (oral) Coding Level of Care Code Est Pt Level 4 (65427) Diagnoses Fracture of thumb, left, closed S62.502A Impaired glucose tolerance R73.02 Essential hypertension I10 Hypertension type: essential hypertension Acquired hypothyroidism E03.9 Hypothyroidism type: acquired Hypercholesterolemia E78.00 Obesity (BMI 30-39.9) E66.9 Dilated cardiomyopathy I42.0 Cardiomyopathy type: dilated Factor 5 Leiden mutation, heterozygous D68.51 Generalized anxiety disorder F41.1
== END 2023-03-13 12:29 | disposition home or self-care (01) ==
PROVIDERS: PCP Internal Medicine; Visit Provider Internal Medicine
DX: I10 Essential (primary) hypertension (principal); E03.9 Hypothyroidism, unspecified; I42.0 Dilated cardiomyopathy; D68.51 Activated protein C resistance; R73.02 Impaired glucose tolerance (oral); S62.502A Fracture of unspecified phalanx of left thumb, initial encounter for closed fracture; E78.00 Pure hypercholesterolemia, unspecified; E66.9 Obesity, unspecified; F41.1 Generalized anxiety disorder
CPT/HCPCS: 83036; 99214

== ENCOUNTER → 2023-03-25 09:11 | Outpatient (BNVA) | payer MEDICARE, SELFPAY | PROVIDERS: PCP Internal Medicine; Visit Provider Internal Medicine ==

== ENCOUNTER → 2023-04-08 08:56 | Outpatient (BNVA) | payer MEDICARE, SELFPAY | PROVIDERS: PCP Internal Medicine; Visit Provider Internal Medicine ==

== ENCOUNTER → 2023-04-22 08:20 | Outpatient (BNVA) | payer MEDICARE, SELFPAY | PROVIDERS: PCP Internal Medicine; Visit Provider Internal Medicine ==

== ENCOUNTER → 2023-05-06 08:40 | Outpatient (BNVA) | payer MEDICARE, SELFPAY | PROVIDERS: PCP Internal Medicine; Visit Provider Internal Medicine ==

== ENCOUNTER → 2023-05-20 10:41 | Outpatient (BNVA) | payer MEDICARE, SELFPAY | PROVIDERS: PCP Internal Medicine; Visit Provider Internal Medicine ==

== ENCOUNTER → 2023-06-03 10:05 | Outpatient (BNVA) | payer MEDICARE, SELFPAY | PROVIDERS: PCP Internal Medicine; Visit Provider Internal Medicine ==

== ENCOUNTER → 2023-06-17 11:18 | Outpatient (BNVA) | payer MEDICARE, SELFPAY | PROVIDERS: PCP Internal Medicine; Visit Provider Internal Medicine ==

== ENCOUNTER → 2023-07-01 12:07 | Outpatient (BNVA) | payer MEDICARE, SELFPAY | PROVIDERS: PCP Internal Medicine; Visit Provider Internal Medicine ==

== ENCOUNTER → 2023-07-08 09:20 | Outpatient (BNVA) | payer MEDICARE, SELFPAY | PROVIDERS: PCP Internal Medicine; Visit Provider Internal Medicine ==

== ENCOUNTER → 2023-07-15 11:29 | Outpatient (BNVA) | payer MEDICARE, SELFPAY | PROVIDERS: PCP Internal Medicine; Visit Provider Internal Medicine ==

== ENCOUNTER 2023-07-18 11:23 | Emergency (ER) | payer MEDICARE, SELFPAY ==
--- NOTE | ~2023-07-18 | CT_ITS ---
CT HEAD AND CERVICAL SPINE WITHOUT CONTRAST HISTORY: 68 years old Female, status post fall with scalp swelling TECHNIQUE: Contiguous axial imaging was performed from the skull base to vertex without intravenous contrast. Sagittal and coronal reformatted images were obtained. CT images of the cervical spine were acquired without intravenous contrast. This CT examination was performed using dose optimization techniques as appropriate, variously including the following: *Automated exposure control *Adjustment of mA and/or kV according to patient size (this includes techniques or standardized protocols for targeted exams where dose is matched to indication/reason for exam; i.e. extremities or head) *Use of iterative reconstruction technique DLP: 307 mGy-cm COMPARISON: None available. FINDINGS: CT HEAD: Left occipitotemporal scalp hematoma. The ventricles and sulci are normal in size and configuration without significant volume loss or hydrocephalus. There is no abnormal attenuation within the brain parenchyma. No territorial loss of queen-white differentiation. No acute intracranial hemorrhage or extra-axial fluid collection. No mass lesion, significant mass effect, or herniation pattern. Replacements. Trace paranasal sinus mucosal thickening. No mastoid effusion. Osseous structures are intact. CT CERVICAL SPINE: No prevertebral soft tissue swelling. The craniocervical junction is intact. Hypertrophic degenerative changes across the anterior atlantodental interval. Straightening of the cervical lordosis. There is no significant spondylolisthesis. Vertebral body heights are normal without acute compression fracture or traumatic posterior element subluxation. No suspicious osseous lesion. Moderate C5-C6 disc height loss with there are ventral and posterior disc osteophytes and uncovertebral joint hypertrophy in conjunction with facet arthrosis contributing to severe left and mild right neural foraminal stenosis. Normal appearance of the paraspinal soft tissues. Visualized lung apices are clear. Normal appearance of the thyroid gland. CT/CT cervical spine wo IV con IMPRESSION: 1. No CT evidence of acute intracranial injury. Left occipitotemporal scalp hematoma. 2. No acute osseous injury in the cervical spine.
[2023-07-18 11:41] VITALS: BP 129/44; PULSE 64; RESP 16; TEMP 36; O2SAT 98; BMI 33.3
--- NOTE | 2023-07-18 11:41 | ED_ITS ---
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 On Warfarin. No LOC. reports she called the Coumadin clinic due to she forgot to take her Coumadin and about the fall and they told her that she should come here for CT of her head and PT INR check. Otherwise patient reports she has a headache and some swelling to the left side of her scalp. She reports when she moves her eyes her head hurts. Denies prolonged down time, any symptoms prior to the fall, dizziness, change in vision, neck stiffness, paresthesias, weakness, chest pain or shortness of breath, back pain, hip pain or any other symptoms complaints concerns or injuries at this time. Related Data Home Medications Medication Instructions Recorded Confirmed cholecalciferol (vitamin D3) 25 25 mcg PO DAILY 08/14/20 07/08/23 mcg (1,000 unit) capsule aspirin 81 mg tablet,delayed 81 mg PO DAILY 08/17/20 07/08/23 release cetirizine 10 mg capsule (Zyrtec) 10 mg PO DAILY PRN 11/19/22 07/08/23 warfarin 7.5 mg tablet 7.5 mg PO DAILY 06/03/23 07/15/23 Previous Rx's Medication Instructions Recorded warfarin 5 mg tablet 5 mg PO DAILY #30 tabs 02/11/22 carvedilol 25 mg tablet 25 mg PO BID 90 days #180 tabs 12/09/22 spironolactone 25 mg tablet 25 mg PO DAILY #90 tabs 12/09/22 levothyroxine 100 mcg tablet 100 mcg PO QAM #90 tabs 03/04/23 lisinopril 10 mg tablet 10 mg PO DAILY #90 tabs 03/04/23 simvastatin 40 mg tablet 40 mg PO QPM #90 tabs 03/04/23 Allergies Allergy/AdvReac Type Severity Reaction Status Date / Time levofloxacin [From Levaquin] Allergy Mild NAUSEA,WEAK Verified 07/18/23 11:41 NESS penicillin G [Penicillin G] Allergy Mild breathing Verified 07/18/23 11:41 issue as a child penicillin V Allergy Unknown breathing Verified 07/18/23 11:41 issue as a child Review of Systems 2 Review of Systems: Constitutional : No Fever, No Chills ENT/Mouth : No Ear Pain, No Hoarseness, No sore throat Eyes: No Eye Pain, No Swelling, No Redness, No Foreign Body Cardiovascular : No Chest Pain, No SOB Respiratory : No Cough, No Dyspnea Gastrointestinal : No Nausea, No Vomiting, No Diarrhea, No abdominal Pain Genitourinary : No Dysuria, No Hematuria Musculoskeletal : + left sided neck pain, No joint pain, No Myalgias, No Joint Swelling Skin : No Skin lacerations, No rash Neuro : No Weakness, No Numbness, No Paresthesias, No Loss of Consciousness, No Dizziness, + Headache Psych : No Anxiety/Panic, No Depression Heme/Lymph: no easy bruising, no Lymphadenopathy Endocrine : No Polyuria, No Polydipsia Yes all other systems are reviewed and are negative [facility] Past Medical History Attestation statement: The following information was validated with the patient. Source: old records reviewed and nursing notes reviewed Onset Date is defined in the Problem List Problems that require an onset date and time if occurred within 24 hrs of arrival to the ED Aortic Dissection and Rupture; Neurologic impairment; Cardiopulmonary Arrest; Endotracheal Intubation; Insertion or Replacement of Mechanical Circulatory Assist Device Medical History Generalized anxiety disorder Adult general medical exam Ductal carcinoma in situ (DCIS) of left breast Impaired glucose tolerance Hypertension Factor 5 Leiden mutation, heterozygous Hypothyroid Hypercholesterolemia Left renal stone Obesity (BMI 30-39.9) Asthma Cardiomyopathy Surgical History History of colonoscopy History of urologic surgery History of surgery History of lithotripsy History of carpal tunnel release History of foot surgery History of lumpectomy of left breast History of cataract surgery Family History Family History Father Myocardial infarction Mother No problems noted. Maternal Grandfather Myocardial infarction CVD (cardiovascular disease) Maternal Uncle Myocardial infarction CVD (cardiovascular disease) Brother In good health Sister In good health Mental health disorder Sister In good health Son In good health Substance use disorder Son In good health Social History Social History Housing: House Alcohol intake: current Patient Tobacco Use Status: Never used Tobacco e-Cigarette/Vaping Use: Never Used Second Hand Smoke Exposure: No Advance Directives: No Advance Directives Information Provided: Yes service: No Current occupational status: employed Cognitive needs: No Hearing needs: No Vision needs: No Physical Exam 2 Vital Signs: Vital Signs: Last Vital Signs Temp 96.8 F 07/18/23 17:58 Pulse 72 07/18/23 17:58 Resp 18 07/18/23 17:58 BP 149/65 H 07/18/23 17:58 Pulse Ox 98 07/18/23 17:58 O2 Del Method Room Air 07/18/23 17:58 BMI result Body Mass Index 33.3 Vital signs reviewed. Blood pressure normal. Pulse normal. Respiration normal. Oxygen normal. Temperature normal. Appearance: Alert. Oriented X3. No acute distress. Head: Patient has some soft tissue swelling/scalp hematoma to left parietal/occipital scalp. No lacerations noted. The rest of the external exam within normal limits. No scalp depressions. Eyes: PERRLA. EOMI. Conjunctiva and sclera normal. Eyelids normal. ENT: EAC normal. TM's Normal. Pharynx normal. Uvula midline. Moist mucous membranes. Normal voice. No trismus noted. No drooling noted. No muffled voice noted. Neck: Normal inspection. Neck supple. FROM. No adenopathy. No meningeal signs. CVS: Normal heart rate and rhythm. Heart sound normal. Pulses normal throughout. No murmurs/rales/gallops. Respiratory: No respiratory distress. Painless inspiration. Breath sounds normal. No wheezes/rales/rhonchi noted. Chest nontender. No accessory muscle usage noted or decreased air movement noted. Back: Full range of motion noted. Nontender. Skin: Skin warm and dry. Normal skin color. Normal skin turgor. No rashes/lesions/lacerations noted. Extremities: Extremities exhibit normal range of motion and nontender. Neuro: Oriented X 3. No motor deficit. No sensory deficit. Reflexes normal. Normal steady gait. No focal neuro deficits noted. CN's II-XII intact bilaterally? Vascular: + radial pulses. Normal cap refill. 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 On Warfarin. No LOC. reports she called the Coumadin clinic due to she forgot to take her Coumadin and about the fall and they told her that she should come here for CT of her head and PT INR check. Otherwise patient reports she has a headache and some swelling to the left side of her scalp. She reports when she moves her eyes her head hurts. Denies prolonged down time, any symptoms prior to the fall, dizziness, change in vision, neck stiffness, paresthesias, weakness, chest pain or shortness of breath, back pain, hip pain or any other symptoms complaints concerns or injuries at this time. On exam soft tissue swelling to left occipital scalp. Tenderness palpation to left lateral paracervical musculature. No mid cervical tenderness step-offs or deformities. Patient has a normal steady gait with full range motion of cervical spine. Patient sent back to the waiting room. Plan: Basic labs including PT INR ordered as request for patient from the Coumadin clinic along with CT scan of brain and cervical spine ordered at this time. Reevaluation(s) Reevaluation #1: Patient presenting after mechanical fall. With head injury no LOC with headache, scalp hematoma and left-sided neck pain. Requesting for INR check. Labs obtained and calcium mildly elevated at 10.5 and INR at 2.2 otherwise all other labs are within normal limits. CT scan of brain/cervical spine negative. Patient requesting to be discharged. Reports that she will follow-up with her primary care provider regarding her high calcium levels. Otherwise I offered her Tylenol she reported that she has Tylenol at home and does not need any medications to go home with. She just wanted to make sure her results were normal and she would like to be discharged. Therefore patient will be discharged at this time with instructions to follow up with PCP. Time: 18:10 Medical Decision Making Differential Diagnosis Differential Diagnoses: The differential diagnosis associated with the presentation includes Patient most likely scalp hematoma due to mechanical fall. Along with cervical strain. H and penile consistent with CVA, ACS, electrolyte abnormality, intracranial hemorrhage or obvious fractures or dislocations. Lab Data MDM Lab Attestation statement: I reviewed the patient's lab results. 07/18/23 13:46 07/18/23 13:47 Labs: Lab Results 07/18/23 07/18/23 07/18/23 Range/Units 13:46 13:47 14:30 WBC 8.6 (4.8-10.8) X10*3/uL RBC 4.37 (4.20-5.50) X10*6/uL Hgb 13.0 (12.0-16.0) g/dl Hct 38.9 (37.0-47.0) % MCV 89.0 (80.0-98.0) fL MCH 29.7 (27.0-33.0) pg MCHC 33.4 (31.0-35.0) g/dl RDW 13.4 (11.0-16.0) % Plt Count 275 (160-400) X10*3/uL MPV 9.9 (9.4-12.3) fL Immature Gran % (Auto) 0.3 (0.0-0.4) % Neut % (Auto) 75.1 H (45-73) % Lymph % (Auto) 16.6 L (20-40) % [place] % (Auto) 5.6 (2-11) % Eos % (Auto) 1.6 (0-4) % Baso % (Auto) 0.8 (0-2) % Lymph # (Auto) 1.4 (1.2-4.9) X10*3/uL [place] # (Auto) 0.5 (0.1-1.2) X10*3/uL Eos # (Auto) 0.1 (0.0-0.4) X10*3/uL Baso # (Auto) 0.1 (0.0-0.2) X10*3/uL Abs Immat Gran (auto) 0.03 (0.00-0.03) X10*3/uL Absolute Neuts (auto) 6.4 (2.0-8.3) x10*3/uL Absolute Nucleated RBC 0.000 (0.0-0.012) X10*3/uL Nucleated RBC % (auto) 0.0 (0.0-0.2) /100WBC PT 26.8 H (11.1-13.3) SEC INR 2.2 H (0.9-1.1) Sodium 140 (135-145) mmol/L Potassium 4.0 (3.3-5.1) mmol/L Chloride 107 (96-108) mmol/L Carbon Dioxide 23 (22-29) mmol/L Anion Gap 14 (12-20) BUN 18 H (9-16) mg/dL Creatinine 0.74 (0.5-1.4) mg/dL Estim Creat Clear Calc 79.1 Estimated GFR > 60 Random Glucose 121 H (60-115) mg/dL Calcium 10.5 H D (8.4-10.2) mg/dL Magnesium 1.8 (1.6-2.6) mg/dL Total Bilirubin 1.1 H (0.0-1.0) mg/dL AST 17 (5-31) U/L ALT 17 (0-31) U/L Alkaline Phosphatase 94 (39-117) U/L Total Protein 8.0 (6.5-8.0) g/dL Albumin 4.6 (3.5-5.0) g/dL Independent Interpretation I performed an independent interpretation of an: CT Scan (I reviewed CT scan myself and agree with the radiology report no acute finding) Interpretation: FINDINGS: CT HEAD: Left occipitotemporal scalp hematoma. The ventricles and sulci are normal in size and configuration without significant volume loss or hydrocephalus. There is no abnormal attenuation within the brain parenchyma. No territorial loss of queen-white differentiation. No acute intracranial hemorrhage or extra-axial fluid collection. No mass lesion, significant mass effect, or herniation pattern. Replacements. Trace paranasal sinus mucosal thickening. No mastoid effusion. Osseous structures are intact. CT CERVICAL SPINE: No prevertebral soft tissue swelling. The craniocervical junction is intact. Hypertrophic degenerative changes across the anterior atlantodental interval. Straightening of the cervical lordosis. There is no significant spondylolisthesis. Vertebral body heights are normal without acute compression fracture or traumatic posterior element subluxation. No suspicious osseous lesion. Moderate C5-C6 disc height loss with there are ventral and posterior disc osteophytes and uncovertebral joint hypertrophy in conjunction with facet arthrosis contributing to severe left and mild right neural foraminal stenosis. Normal appearance of the paraspinal soft tissues. Visualized lung apices are clear. Normal appearance of the thyroid gland. CT/CT head/brain wo IV con IMPRESSION: 1. No CT evidence of acute intracranial injury. Left occipitotemporal scalp hematoma. 2. No acute osseous injury in the cervical spine. Radiology Impression Discussion of test interpretation with radiology: I have reviewed the radiologist's reading. Independent Historian Clinical information obtained from an independent historian. History obtained from or confirmed by: Other (Patient, medical records and nurse's notes) External Record Review External record reviewed: Inpatient record, Office record, Outpatient record, Prior outpatient labs, Prior outpatient radiology, Primary care record and Outside ED record Prescription Management I considered prescription management with: Pain Medication Social Determinants Patient?s care significantly limited by Social Determinants of Health including: Other Social Determinant of Health Discharge Plan Discharge Clinical Impression: Fall, Head injury, Hematoma of scalp, Serum calcium elevated, Cervical strain Patient Disposition: Home, Self-Care Instructions: Cervical Strain (DC), Scalp Contusion in Adults (ED), Hypercalcemia (ED) Prescriptions: No Action carvedilol 25 mg tablet 25 mg PO BID 90 Days Qty: 180 3RF Rx Instructions: must administer with a meal/food spironolactone 25 mg tablet 25 mg PO DAILY Qty: 90 3RF lisinopril 10 mg tablet 10 mg PO DAILY Qty: 90 3RF levothyroxine 100 mcg tablet 100 mcg PO QAM Qty: 90 3RF simvastatin 40 mg tablet 40 mg PO QPM Qty: 90 2RF cholecalciferol (vitamin D3) 25 mcg (1,000 unit) capsule 25 mcg PO DAILY warfarin 5 mg tablet 5 mg PO DAILY Qty: 30 0RF Protocol: Dose Management Condition: Friday (Week One) Dose/Route: 7.5 mg Instruction: 1 x 7.5 mg tablet Condition: Friday Dose/Route: 7.5 mg Instruction: 1 x 7.5 mg tablet Condition: Friday Dose/Route: 7.5 mg Instruction: 1 x 7.5 mg tablet Condition: Friday Dose/Route: 7.5 mg Instruction: 1 x 7.5 mg tablet Condition: Dose/Route: 7.5 mg Instruction: 1 x 7.5 mg tablet Condition: Friday Dose/Route: 7.5 mg Instruction: 1 x 7.5 mg tablet Condition: Friday Dose/Route: 7.5 mg Instruction: 1 x 7.5 mg tablet Condition: Friday (Week Two) Dose/Route: 7.5 mg Instruction: 1 x 7.5 mg tablet Condition: Friday Dose/Route: 7.5 mg Instruction: 1 x 7.5 mg tablet Condition: Friday Dose/Route: 7.5 mg Instruction: 1 x 7.5 mg tablet Condition: Friday Dose/Route: 7.5 mg Instruction: 1 x 7.5 mg tablet Condition: Dose/Route: 7.5 mg Instruction: 1 x 7.5 mg tablet Condition: Friday Dose/Route: 7.5 mg Instruction: 1 x 7.5 mg tablet Condition: Friday Dose/Route: 7.5 mg Instruction: 1 x 7.5 mg tablet Protocol Text: Adjustment Start Date: Friday07/15/23 INR Value: 3.0 INR Date: 07/15/23 Recheck Date: 07/29/23 Additional Instructions: cont reg dosing aspirin 81 mg tablet,delayed release (DR/EC) 81 mg PO DAILY Zyrtec 10 mg capsule 10 mg PO DAILY PRN warfarin 7.5 mg tablet 7.5 mg PO DAILY Protocol: Dose Management Condition: Friday (Week One) Dose/Route: 7.5 mg Instruction: 1 x 7.5 mg tablet Condition: Friday Dose/Route: 7.5 mg Instruction: 1 x 7.5 mg tablet Condition: Friday Dose/Route: 7.5 mg Instruction: 1 x 7.5 mg tablet Condition: Friday Dose/Route: 7.5 mg Instruction: 1 x 7.5 mg tablet Condition: Dose/Route: 7.5 mg Instruction: 1 x 7.5 mg tablet Condition: Friday Dose/Route: 7.5 mg Instruction: 1 x 7.5 mg tablet Condition: Friday Dose/Route: 7.5 mg Instruction: 1 x 7.5 mg tablet Condition: Friday (Week Two) Dose/Route: 7.5 mg Instruction: 1 x 7.5 mg tablet Condition: Friday Dose/Route: 7.5 mg Instruction: 1 x 7.5 mg tablet Condition: Friday Dose/Route: 7.5 mg Instruction: 1 x 7.5 mg tablet Condition: Friday Dose/Route: 7.5 mg Instruction: 1 x 7.5 mg tablet Condition: Dose/Route: 7.5 mg Instruction: 1 x 7.5 mg tablet Condition: Friday Dose/Route: 7.5 mg Instruction: 1 x 7.5 mg tablet Condition: Friday Dose/Route: 7.5 mg Instruction: 1 x 7.5 mg tablet Protocol Text: Adjustment Start Date: Friday07/15/23 INR Value: 3.0 INR Date: 07/15/23 Recheck Date: 07/29/23 Additional Instructions: cont reg dosing Referrals: Eugenio Lopez MD [Primary Care Provider] - 1 day
[2023-07-18 13:56] LABS: MANUAL DIFF FLAG NO
[2023-07-18 14:00] LABS: Basophils Absolute Auto 0.1 X10*3/uL (0.0-0.2); Basophils Percent Auto 0.8 % (0-2); Eosinophils Absolute Auto 0.1 X10*3/uL (0.0-0.4); Eosinophils Percent Auto 1.6 % (0-4); Hematocrit 38.9 % (37.0-47.0); Imm Gran Abs Auto 0.03 X10*3/uL (0.00-0.03); Imm Gran Pct Auto 0.3 % (0.0-0.4); Lymphocytes Absolute Auto 1.4 X10*3/uL (1.2-4.9); Lymphocytes Percent Auto 16.6 % (20-40); Mean Corpuscular HGB Conc 33.4 g/dl (31.0-35.0); Mean Corpuscular Hemoglobin 29.7 pg (27.0-33.0); Mean Platelet Volume 9.9 fL (9.4-12.3); Monocytes Absolute Auto 0.5 X10*3/uL (0.1-1.2); Monocytes Percent Auto 5.6 % (2-11); Neutrophils Absolute Auto 6.4 x10*3/uL (2.0-8.3); Neutrophils Percent Auto 75.1 % (45-73); Platelet Count 275 X10*3/uL (160-400); Red Blood Count 4.37 X10*6/uL (4.20-5.50); Red Cell Distribution Width 13.4 % (11.0-16.0); White Blood Count 8.6 X10*3/uL (4.8-10.8)
[2023-07-18 14:19] LABS: Alanine Aminotransferase 17 U/L (0-31); Albumin Level 4.6 g/dL (3.5-5.0); Alkaline Phosphatase 94 U/L (39-117); Anion Gap 14 (12-20); Aspartate Amino Transferase 17 U/L (5-31); Bilirubin Total 1.1 mg/dL (0.0-1.0); Blood Urea Nitrogen 18 mg/dL (9-16); Calcium 10.5 mg/dL (8.4-10.2); Carbon Dioxide 23 mmol/L (22-29); Chloride 107 mmol/L (96-108); Creatinine Clr Calc Pharmacy 79.1; Estimated Glomerular Filt Rate > 60; Glucose Random 121 mg/dL (60-115); Magnesium 1.8 mg/dL (1.6-2.6); Sodium 140 mmol/L (135-145)
[2023-07-18 14:42] LABS: INTERNATIONAL NORM RATIO 2.2 (0.9-1.1); Prothrombin Time 26.8 SEC (11.1-13.3)
[2023-07-18 17:58] VITALS: BP 149/65; PULSE 72; RESP 18; TEMP 36; O2SAT 98
== END 2023-07-18 18:04 | disposition home or self-care (01) ==
PROVIDERS: Physician Assistant Medical; Emergency Provider Emergency Medicine Emergency Medical Services; PCP Internal Medicine
DX: S00.03XA Contusion of scalp, initial encounter (principal); S16.1XXA Strain of muscle, fascia and tendon at neck level, initial encounter; W17.89XA Other fall from one level to another, initial encounter; E83.52 Hypercalcemia; I10 Essential (primary) hypertension; E78.00 Pure hypercholesterolemia, unspecified; Z79.01 Long term (current) use of anticoagulants; Z79.02 Long term (current) use of antithrombotics/antiplatelets; Z79.899 Other long term (current) drug therapy; Y93.89 Activity, other specified; Y92.29 Other specified public building as the place of occurrence of the external cause; Y99.0 Civilian activity done for income or pay
CPT/HCPCS: 36415; 70450; 72125; 80053; 83735; 85025; 85610; 99282; 99284

== ENCOUNTER → 2023-07-29 09:36 | Outpatient (BNVA) | payer MEDICARE, SELFPAY | PROVIDERS: PCP Internal Medicine; Visit Provider Internal Medicine ==

== ENCOUNTER → 2023-08-12 10:04 | Outpatient (BNVA) | payer MEDICARE, SELFPAY | PROVIDERS: PCP Internal Medicine; Visit Provider Internal Medicine ==

== ENCOUNTER → 2023-08-26 08:32 | Outpatient (BNVA) | payer MEDICARE, SELFPAY | PROVIDERS: PCP Internal Medicine; Visit Provider Internal Medicine ==

== ENCOUNTER → 2023-09-09 09:44 | Outpatient (BNVA) | payer MEDICARE, SELFPAY | PROVIDERS: PCP Internal Medicine; Visit Provider Internal Medicine ==

== ENCOUNTER → 2023-09-23 12:42 | Outpatient (BNVA) | payer MEDICARE, SELFPAY | PROVIDERS: PCP Internal Medicine; Visit Provider Internal Medicine ==

== ENCOUNTER → 2023-10-07 10:27 | Outpatient (BNVA) | payer MEDICARE, SELFPAY | PROVIDERS: PCP Internal Medicine; Visit Provider Internal Medicine ==

== ENCOUNTER → 2023-10-21 09:33 | Outpatient (BNVA) | payer MEDICARE, SELFPAY | PROVIDERS: PCP Internal Medicine; Visit Provider Internal Medicine ==

== ENCOUNTER → 2023-11-04 11:37 | Outpatient (BNVA) | payer MEDICARE, SELFPAY | PROVIDERS: PCP Internal Medicine; Visit Provider Internal Medicine ==

== ENCOUNTER → 2023-11-19 11:22 | Outpatient (BNVA) | payer MEDICARE, SELFPAY | PROVIDERS: PCP Internal Medicine; Visit Provider Internal Medicine ==

== ENCOUNTER → 2023-11-25 09:47 | Outpatient (BNVA) | payer MEDICARE, SELFPAY | PROVIDERS: PCP Internal Medicine; Visit Provider Internal Medicine ==

== ENCOUNTER → 2023-11-27 13:39 | Outpatient (BNVA) | payer MEDICARE, SELFPAY | PROVIDERS: PCP Internal Medicine; Visit Provider Internal Medicine ==

== ENCOUNTER → 2023-12-02 10:25 | Outpatient (BNVA) | payer MEDICARE, SELFPAY | PROVIDERS: PCP Internal Medicine; Visit Provider Internal Medicine ==

== ENCOUNTER → 2023-12-09 11:53 | Outpatient (BNVA) | payer MEDICARE, SELFPAY | PROVIDERS: PCP Internal Medicine; Visit Provider Internal Medicine ==

== ENCOUNTER 2023-12-12 10:09 | Outpatient (AMB) | payer MEDICARE, SELFPAY ==
[2023-12-12 10:10] VITALS: BP 110/64; PULSE 65; O2SAT 97; BMI 33.0
--- NOTE | 2023-12-12 10:10 | A.OFFVIS_ITS ---
Intake Vital Signs 12/12/23 10:10 Height 5 ft 4 in Weight 192 lb BMI 33.0 BP 110/64 Blood Pressure Location Lt brachial Position Sitting Pulse 65 Pulse Source Pulse Oximeter Pulse Oximetry (%) 97 Oxygen Delivery Method Room Air Intake Visit Reasons: SAWV Intake Note: Patient is here for an Annual Wellness Visit. 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: No Allergies levofloxacin [From Levaquin] Allergy (Mild, Verified 12/12/23 11:23) NAUSEA,WEAKNESS penicillin G [Penicillin G] Allergy (Mild, Verified 12/12/23 11:23) breathing issue as a child penicillin V Allergy (Unknown, Verified 12/12/23 11:23) breathing issue as a child Medication List - Last Reconciled 12/12/23 by Eugenio Lopez MD carvedilol 25 mg PO BID 90 days cetirizine (Zyrtec) 10 mg PO DAILY PRN cholecalciferol (vitamin D3) 25 mcg PO DAILY levothyroxine 100 mcg PO QAM lisinopril 10 mg PO DAILY simvastatin 40 mg PO QPM spironolactone 25 mg PO DAILY warfarin 5 mg See Protocol PO DAILY warfarin 7.5 mg See Protocol PO DAILY HPI SAWV HPI Details 68-year-old obese female with impaired g lucose tolerance hypertension hypothyroid hypercholesterolemia cardiomyopathy factor 5 Leiden mutation and generalized anxiety disorder last seen in 03/19/2023. Patient is here for annual well visit. Mammogram is due bone density normal in 2020 colonoscopy is up-to-date November 2018. Review of the notes in 09/17/2023 followed up with Cardiology continuing with carvedilol lisinopril and Aldactone. 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 CT done no evidence of intracranial injury has a left occipital temporal scalp hematoma [facility] Medical History Generalized anxiety disorder Adult general medical exam Ductal carcinoma in situ (DCIS) of left breast Impaired glucose tolerance Hypertension Factor 5 Leiden mutation, heterozygous Hypothyroid Hypercholesterolemia Left renal stone Obesity (BMI 30-39.9) Asthma Cardiomyopathy Surgical History History of colonoscopy History of urologic surgery History of surgery History of lithotripsy History of carpal tunnel release History of foot surgery History of lumpectomy of left breast History of cataract surgery Family History Father Myocardial infarction Mother No problems noted. Maternal Grandfather Myocardial infarction CVD (cardiovascular disease) Maternal Uncle Myocardial infarction CVD (cardiovascular disease) Brother In good health Sister In good health Mental health disorder Sister In good health Son In good health Substance use disorder Son In good health Social History (Updated 12/12/23 @ 10:55 by Eugenio Lopez MD) Housing: House Alcohol intake: current Comment: once a month1 glass Patient Tobacco Use Status: Never used Tobacco e-Cigarette/Vaping Use: Never Used Second Hand Smoke Exposure: No service: No Current occupational status: employed Cognitive needs: No Hearing needs: No Vision needs: No Questionnaire Medicare Wellness Checkup What [age]?: 65-69 What gender do you identify with?: female During the past 4 weeks, how much have you been bothered by emotional problems such as feeling anxious, depressed, irritable, sad or downhearted, and blue?: not at all During the past 4 weeks, has your physical & emotional health limited your social activities with family, friends, neighbors, or groups?: not at all During the past 4 weeks, how much bodily pain have you generally had?: no pain During the past 4 weeks, was someone available to help you if you needed & wanted help?: yes, as much as I wanted During the past 4 weeks, what was the hardest physical activity you could do for at least 2 minutes?: moderate Can you get to places out of walking distance without help? (For eg., can you travel alone on buses, taxis or drive your car?): Yes Can you go shopping for groceries or clothes without someone's help?: Yes Can you prepare your own meals?: Yes Can you do your housework without help?: Yes Because of any health problems, do you need the help of another person with your personal care needs such as eating, bathing, dressing or getting around the house?: No Can you handle your own money without help?: Yes During the past 4 weeks, how would you rate your health in general?: good During the past 4 weeks how have things been going for you?: very well; could hardly better Are you having difficulties driving your car?: no Do you always fasten your seat belt when you are in a car?: yes, usually During past 4 weeks, have you been bothered by the following: never: Falling or dizzy when standing up, Sexual problems?, Trouble eating well?, Teeth or denture problems?, Problems using the telephone? and Tiredness or fatigue? Have you fallen 2 or more times in the past year?: No Are you afraid of falling?: No Are you a smoker?: no During the past 4 weeks, how many drinks of wine, beer, or other alcoholic beverages did you have?: 1 drink or less per week Do you exercise for about 20 minutes 3 or more times a week?: no, I usually do not exercise this much Have you been given information to help with the following?: no: Hazards in your house that might hurt you? and no: Keeping track of your medications? How often do you have trouble taking medicines the way you have been told to take them?: I always take medicine as prescribed How confident are you that you can control & manage most of your health problems?: very confident What is your race?: White PHQ-9 Over the last 2 weeks, how often have you been bothered by any of the following problems? 1. Little interest or pleasure in doing things: not at all 2. Feeling down, depressed, or hopeless: not at all 3. Trouble falling or staying asleep, or sleeping too much: several days 4. Feeling tired or having little energy: not at all 5. Poor appetite or overeating: not at all 6. Feeling bad about yourself - or that you are a failure or have let yourself or your family down: not at all 7. Trouble concentrating on things, such as reading the newspaper or watching television: not at all 8. Moving or speaking so slowly that other people could have noticed. Or the opposite - being so fidgety or restless that you have been moving around a lot more than usual: not at all 9. Thoughts that you would be better off or of hurting yourself in some way: not at all Total score: 1 Depression Screening Interpretation: Negative Depression Screening Done: Yes [id number] - PHQ-9 Billing: Yes Source: Developed by Drs. Momo Zhang, Samia Mckeon, Ilan Bhakta and colleagues, with an educational esau from [employer]. Review of Systems Const Denies poor appetite and Denies weakness Eyes Denies no additional complaints ENT Reports Normal hearing present, Denies dizziness, Denies nasal congestion, Denies tinnitus and Denies sore throat Card Denies chest pain, Denies syncope, Denies rapid heart rate and Denies dyspnea Resp Denies cough and Denies dyspnea GI Denies change in stool character, Reports constipation, Denies diarrhea, Denies nausea and Denies vomiting Denies urinary frequency, Denies difficulty voiding and Denies dysuria Neuro Reports Normal hearing present, Denies confusion, Denies dizziness, Denies syncope and Denies weakness Psych Denies confusion Physical Exam Vital Signs: Last Vital Signs Pulse 65 12/12/23 10:10 BP 110/64 12/12/23 10:10 Pulse Ox 97 12/12/23 10:10 Oxygen Delivery Method Room Air 12/12/23 10:10 BMI result Body Mass Index 33.0 Const General: No confusion Orientation/consciousness: No confusion HEENT Head: Yes normocephalic Ears: external ears normal and TM's normal bilaterally Face and sinus: Yes normal facial exam Mouth: moist mucous membranes Throat: Yes tonsils normal Eyes Conjunctivae: conjunctivae normal Pupils: Equal, round and reactive pupils present and Pupil accommodation reflex normal Direct Ophthalmoscopy: normal light reflex Neck Neck: No lymphadenopathy Thyroid: Thyroid normal Chest Chest palpation & inspection: normal inspection of the chest Resp Effort & Inspection: normal respiratory effort and no audible wheezes Auscultation: clear to auscultation bilaterally, no crackles, no wheezes and lung sounds not diminished Cardio Rate: regular rate Rhythm: regular rhythm Peripheral pulses: radial pulses present and dorsalis pedis present GI Palpation (GI): no masses Auscultation: normal bowel sounds and normoactive bowel sounds Rectal Exam - Female: deferred Skin General skin exam: no rashes or lesions noted Rashes: no rashes Neuro General: No confusion Cranial nerves: Yes Equal, round and reactive pupils present and Yes Normal hearing present Cognition (Neuro): normal cognition Gait exam (Neuro): Normal gait present Motor exam (neuro): 5/5 motor strength present throughout Deep tendon reflexes (DTR's): Right brachioradialis reflex intensity grade: 2+, Left brachioradialis reflex intensity grade: 2+, Right patellar reflex intensity grade: 2+ and Left patellar reflex intensity grade: 2+ Extrem General: No edema Assessment & Plan Assessment & Plan (1) Medicare annual wellness visit, subsequent: Code(s): Z00.00 - Encounter for general adult medical examination without abnormal findings Plan: Patient is advised to eat healthy, keep well hydrated, keep active and have adequate sleep. (2) Cardiomyopathy: Comment: Echocardiogram October 2019 EF 55-60% paradoxical synergistic septal wall consistent with left bundle branch block Code(s): I42.9 - Cardiomyopathy, unspecified Qualifiers: Cardiomyopathy type: dilated Qualified Code(s): I42.0 - Dilated cardiomyopathy Plan: Patient continues to follow-up with Cardiology presently stable and left ventricle function recovered. (3) Obesity (BMI 30-39.9): Code(s): E66.9 - Obesity, unspecified Plan: Diet and exercise (4) Hypercholesterolemia: Code(s): E78.00 - Pure hypercholesterolemia, unspecified Plan: Avoid fried foods, chicken skin, eggs, butter margarine, pastries and meat. Be it pork or beef they have a lot of cholesterol LDL goal of less than 100 and triglyceride of less than 150 (5) Hypothyroid: Code(s): E03.9 - Hypothyroidism, unspecified Qualifiers: Hypothyroidism type: acquired Qualified Code(s): E03.9 - Hypothyroidism, unspecified Plan: Continue with thyroid medication advised to get blood work done (6) Factor 5 Leiden mutation, heterozygous: Code(s): D68.51 - Activated protein C resistance Plan: Continue with anticoagulation Coumadin (7) Hypertension: Code(s): I10 - Essential (primary) hypertension Qualifiers: Hypertension type: essential hypertension Qualified Code(s): I10 - Essential (primary) hypertension Plan: Continue with blood pressure medication. Decrease salt intake and exercise on carvedilol 25 mg twice a day lisinopril 10 mg once a day spironolactone 25 mg once a day (8) Impaired glucose tolerance: Code(s): R73.02 - Impaired glucose tolerance (oral) Plan: Decrease the amount of carbohydrate intake, pasta, bread, rice and potatoes are all sugar and that is aside from all the sweet stuff, remember that fruits are good but they are Sweet also. (9) Generalized anxiety disorder: Code(s): F41.1 - Generalized anxiety disorder Plan: Stable (10) Colon cancer screening: Comment: 11/2018 Serrated polyp Code(s): Z12.11 - Encounter for screening for malignant neoplasm of colon Plan: Patient is reminded about colonoscopy Orders: Orders XR DEXA axial skeleton Today M81.0 - Age-related osteoporosis without current pathological fracture, M85.80 - Other specified disorders of bone density and structure, unspecified site Referrals Gastroenterology Referral Z12.11 - Encounter for screening for malignant neoplasm of colon Medications: Refilled warfarin 5 mg See Protocol PO DAILY 30 tabs 6RF M85.80 - Other specified disorders of bone density and structure, unspecified site Quality Reporting (2019) Depression/Bipolar (159/160/161/177) PHQ-9: Total score: 1 Coding Level of Care Code Medicare Subsequent (G0439) Diagnoses Medicare annual wellness visit, subsequent Z00.00 Dilated cardiomyopathy I42.0 Cardiomyopathy type: dilated Obesity (BMI 30-39.9) E66.9 Hypercholesterolemia E78.00 Acquired hypothyroidism E03.9 Hypothyroidism type: acquired Factor 5 Leiden mutation, heterozygous D68.51 Essential hypertension I10 Hypertension type: essential hypertension Impaired glucose tolerance R73.02 Generalized anxiety disorder F41.1 Colon cancer screening Z12.11
== END 2023-12-12 11:09 | disposition home or self-care (01) ==
PROVIDERS: PCP Internal Medicine; Visit Provider Internal Medicine
DX: Z00.00 Encounter for general adult medical examination without abnormal findings (principal); D68.51 Activated protein C resistance; Z68.33 Body mass index [BMI] 33.0-33.9, adult; E66.9 Obesity, unspecified; I42.0 Dilated cardiomyopathy; E78.00 Pure hypercholesterolemia, unspecified; E03.9 Hypothyroidism, unspecified; I10 Essential (primary) hypertension; R73.02 Impaired glucose tolerance (oral); F41.1 Generalized anxiety disorder; Z12.11 Encounter for screening for malignant neoplasm of colon
CPT/HCPCS: G0439

== ENCOUNTER 2023-12-12 11:20 | Outpatient (AMB) | payer MEDICARE, SELFPAY ==
[2023-12-12 11:32] LABS: Prothrombin Time Whole Bld POC 36.3 sec (11.1-13.5)
--- NOTE | 2023-12-12 11:35 | MHC.OFFVISCO ---
Intake Intake Visit Reasons: Anticoagulation Allergies levofloxacin [From Levaquin] Allergy (Mild, Verified 12/12/23 11:23) NAUSEA,WEAKNESS penicillin G [Penicillin G] Allergy (Mild, Verified 12/12/23 11:23) breathing issue as a child penicillin V Allergy (Unknown, Verified 12/12/23 11:23) breathing issue as a child Medication List - Last Reconciled 12/12/23 by Carrol Tavarez RN carvedilol 25 mg PO BID 90 days cetirizine (Zyrtec) 10 mg PO DAILY PRN cholecalciferol (vitamin D3) 25 mcg PO DAILY levothyroxine 100 mcg PO QAM lisinopril 10 mg PO DAILY simvastatin 40 mg PO QPM spironolactone 25 mg PO DAILY warfarin 5 mg See Protocol PO DAILY warfarin 7.5 mg See Protocol PO DAILY Nursing Note Amb to [facility] for annual meter to meter visit memory match completed pt demonstrates very good knowlege and use of meter Medications and supplements reviewed, was recently on magnesium for leg cramps and has DCd it No other changes in health, diet, medications, or supplements, Denies any signs and symptoms of bleeding or bruising or clotting. INR pt meter 2.8 our meter 3.0 within correlation to continue usual 7.5mg daily dosing Nutritional guidance given- balance greens and reds in diet and be consistent F/U INR: 6/25 on usual [facility] testing day Risk scores completed Patient verbalizes understanding of instructions given Anti-Coag Initial Assessment Social Hx Patient Tobacco Use Status: Never used Tobacco alcohol intake: current Questionnaires HAS-BLED Does the patient had uncontrolled Hypertension?: No Does the patient have renal disease?: No Does the patient have liver disease?: No Does the patient have a history of stroke?: No Has the patient had major bleeding or predisposition to bleeding?: No Does the patient have labile INRs?: No Is the patient over 65 years of age?: Yes Is the patient on medications that gives them a predisposition to bleeding?: Yes Does the patient use alcohol?: Yes HAS-BLED Score: 3 CHADSVASC Age: 66-74 Gender: Female Does the patient have a history of CHF?: No Does the patient have a history of Hypertension?: Yes Does the patient have a history of Stroke/TIA/Thromboembolism?: Yes Does the patient have a history of Vascular Disease (prior MS, PAD or aortic plaque)?: No Does the patient have a history of Diabetes?: No CHADS VACS Score: 5 Zane Prediction Score Rsk VTE Active Cancer: No Previous VTE, excluding superficial vein thrombosis: Yes Reduced mobility: No Already known Thrombophilic Condition: Yes With-in last month Trauma and/or Surgery: No Elderly 70 year or older: No Heart and/or Respiratory Failure: No Acute Myocardial infarction and/or Ischemic Stroke: No Acute Infection and/or Rheumatologic Disorder: No Obesity (BMI 30 or greater): No Ongoing Hormonal Treatment: No Score: 6 Zane Score less than 4; Low Risk of VTE Zane Score 4 or greater; High Risk of VTE Coding Level of Care Code Est Patient Level 2 Diagnoses Current use of anticoagulant therapy Z79.01 Time Spent (min) 30 Comment meter to meter, update scores Assessment & Plan Assessment & Plan (1) Current use of anticoagulant therapy: Code(s): Z79.01 - assisted (current) use of anticoagulants Category: Medical
== END 2023-12-12 11:51 | disposition home or self-care (01) ==
LOC: HO.ACS 11:20
PROVIDERS: PCP Internal Medicine; Visit Provider Internal Medicine
DX: Z79.01 Long term (current) use of anticoagulants (principal)

== ENCOUNTER → 2023-12-12 11:20 | Outpatient (BNVA) | payer MEDICARE, SELFPAY | PROVIDERS: PCP Internal Medicine; Visit Provider Internal Medicine | DX: D68.51 Activated protein C resistance (principal); I42.9 Cardiomyopathy, unspecified; Z79.01 Long term (current) use of anticoagulants; Z51.81 Encounter for therapeutic drug level monitoring | CPT/HCPCS: 85610; 99212 ==

== ENCOUNTER → 2023-12-23 10:04 | Outpatient (BNVA) | payer MEDICARE, SELFPAY | PROVIDERS: PCP Internal Medicine; Visit Provider Internal Medicine ==

== ENCOUNTER → 2024-01-06 11:10 | Outpatient (BNVA) | payer MEDICARE, SELFPAY | PROVIDERS: PCP Internal Medicine; Visit Provider Internal Medicine ==

== ENCOUNTER 2024-01-07 14:21 | Outpatient (REF) | payer MEDICARE, SELFPAY ==
--- NOTE | ~2024-01-07 | MM_ITS ---
EXAMINATION: BONE DENSITOMETRY CLINICAL INDICATION: Age-related osteoporosis without current pathological fracture. COMPARISON: Previous BD dated 05/01/2021 and baseline BD dated 02/16/2013 and 10/14/2007. TECHNIQUE: Using a [employer] DXA System (software version: 13.1) manufactured by [employer], dual-energy x-ray absorptiometry was performed of the lumbar spine and left hip. The images are of good technical quality. Summary results are attached. FINDINGS: LEFT FEMUR, NECK: Current: BMD 0.980 g/cm2, Z-score 0.7, T-score -0.4, normal. Prior: BMD 0.921 g/cm2. Baseline: BMD 0.874 g/cm2. LEFT FEMUR, TOTAL: Current: BMD 1.052 g/cm2, Z-score 1.1, T-score 0.4, normal, 0.4% increase from previous, 7.9% increase from baseline (<5% change is not significant). Prior: BMD 1.048 g/cm2. Baseline: BMD 0.975 g/cm2. AP SPINE L1-L4: Current: BMD 1.123 g/cm2, Z-score 0.4, T-score -0.5, normal, 1.8% increase from previous, 13.8% increase from baseline (<5% change is not significant). Prior: BMD 1.103 g/cm2. Baseline: BMD 0.987 g/cm2. IDENTIFIED RISK FACTORS: Early menopause, secondary osteoporosis. HISTORY OF FRACTURE: None listed. MEDICATIONS: Vitamin D. MM/XR DEXA axial skeleton IMPRESSION: 1. DIAGNOSIS: Normal bone density based on the lowest T-score value of -0.5 in the lumbar spine applying World Health Organization criteria. 2. 10-YEAR FRACTURE RISK PREDICTION, FRAX: According to the guidelines, FRAX calculation should only be performed on patients in the osteopenia bone density category. Therefore, FRAX was not performed on this patient.? 3. Treatment Recommendations: NOF guidelines recommend consideration for treatment in postmenopausal women and men age 50 and older presenting with the following: -A hip or vertebral (clinical or morphometric) fracture. -T-score less than or equal to -2.5 at the femoral neck or spine after appropriate evaluation to exclude secondary causes. -Low bone mass at the hip or spine and a 10-year fracture probability by FRAX of greater than or equal to 3% for hip fracture or greater than or equal to 20% for major osteoporotic fracture based on the [place] adapted WHO algorithm. 4. Other Recommendations: All treatment decisions require clinical judgment and consideration of individual patient factors, including patient preferences, comorbidities, previous drug use, risk factors not captured in the FRAX model (e.g. frailty, falls, vitamin D deficiency, increased bone turnover, interval significant decline in bone density) and possible under or overestimation of fracture risk by FRAX. FUTURE SCAN RECOMMENDATION: People with diagnosed cases of osteoporosis or at high risk for fracture should have regular bone mineral density tests. For patients eligible for Medicare, routine testing is allowed once every 2 years. The testing frequency can be increased to one year for patients who have rapidly progressing disease, those who are receiving or discontinuing medical therapy to restore bone mass, or have additional risk factors.
== END 2024-01-07 14:22 | disposition home or self-care (01) ==
LOC: HO.MAMMO 14:21
PROVIDERS: PCP Internal Medicine; Visit Provider Internal Medicine
DX: M81.0 Age-related osteoporosis without current pathological fracture (principal); M85.80 Other specified disorders of bone density and structure, unspecified site
CPT/HCPCS: 77080

== ENCOUNTER → 2024-01-20 11:30 | Outpatient (BNVA) | payer MEDICARE, SELFPAY | PROVIDERS: PCP Internal Medicine; Visit Provider Internal Medicine ==

== ENCOUNTER → 2024-02-03 09:30 | Outpatient (BNVA) | payer MEDICARE, SELFPAY | PROVIDERS: PCP Internal Medicine; Visit Provider Internal Medicine ==

== ENCOUNTER → 2024-02-17 10:25 | Outpatient (BNVA) | payer MEDICARE, SELFPAY | PROVIDERS: PCP Internal Medicine; Visit Provider Internal Medicine ==

== ENCOUNTER → 2024-03-02 11:37 | Outpatient (BNVA) | payer MEDICARE, SELFPAY | PROVIDERS: PCP Internal Medicine; Visit Provider Internal Medicine ==

== ENCOUNTER → 2024-03-16 08:59 | Outpatient (BNVA) | payer MEDICARE, SELFPAY | PROVIDERS: PCP Internal Medicine; Visit Provider Internal Medicine ==

== ENCOUNTER → 2024-03-30 10:03 | Outpatient (BNVA) | payer MEDICARE, SELFPAY | PROVIDERS: PCP Internal Medicine; Visit Provider Internal Medicine ==

== ENCOUNTER → 2024-04-13 13:38 | Outpatient (BNVA) | payer MEDICARE, SELFPAY | PROVIDERS: PCP Internal Medicine; Visit Provider Internal Medicine ==

== ENCOUNTER → 2024-04-27 12:55 | Outpatient (BNVA) | payer MEDICARE, SELFPAY | PROVIDERS: PCP Internal Medicine; Visit Provider Internal Medicine ==

== ENCOUNTER 2024-05-11 11:21 | Outpatient (AMB) | payer MEDICARE, SELFPAY ==
--- NOTE | 2024-05-11 11:27 | MHC.OFFVISCO ---
Intake Intake Visit Reasons: Anticoagulation Allergies levofloxacin [From Levaquin] Allergy (Mild, Verified 05/11/24 11:23) NAUSEA,WEAKNESS penicillin G [Penicillin G] Allergy (Mild, Verified 05/11/24 11:23) breathing issue as a child penicillin V Allergy (Unknown, Verified 05/11/24 11:23) breathing issue as a child Medication List - Last Reconciled 05/11/24 by Carrol Cox RN carvedilol 25 mg PO BID 90 days cetirizine (Zyrtec) 10 mg PO DAILY PRN cholecalciferol (vitamin D3) 25 mcg PO DAILY levothyroxine 100 mcg PO QAM lisinopril 10 mg PO DAILY simvastatin 40 mg PO QPM spironolactone 25 mg PO DAILY warfarin 5 mg See Protocol PO DAILY warfarin 7.5 mg See Protocol PO DAILY 90 days Nursing Note INR received from [facility] INR?? 2.2 in therapeutic range of 2-3 No changes indicated per patient assessment questionnaire No changes in health, diet, supplements or meds No signs and symptoms of bleeding or bruising or clotting Dose: 7.5mg daily Retest: 2 weeks Anti-Coag Initial Assessment Social Hx Patient Tobacco Use Status: Never used Tobacco alcohol intake: current Coding Level of Care Code Est Patient Level 1 Diagnoses Current use of anticoagulant therapy Z79.01 Results AMB INR Fingerstick AMB INR Fingerstick 2.2 Last Edit by Carrol Cox RN on 05/11/24 11:25 [facility] Assessment & Plan Assessment & Plan (1) Current use of anticoagulant therapy: Code(s): 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
== END 2024-05-11 11:37 | disposition home or self-care (01) ==
LOC: HO.ACS 11:21
PROVIDERS: PCP Internal Medicine; Visit Provider Internal Medicine
DX: Z79.01 Long term (current) use of anticoagulants (principal)

== ENCOUNTER → 2024-05-11 11:21 | Outpatient (BNVA) | payer MEDICARE, SELFPAY | PROVIDERS: PCP Internal Medicine; Visit Provider Internal Medicine | DX: D68.51 Activated protein C resistance (principal); I42.9 Cardiomyopathy, unspecified; Z79.01 Long term (current) use of anticoagulants; Z51.81 Encounter for therapeutic drug level monitoring | CPT/HCPCS: 99211 ==

== ENCOUNTER 2024-06-17 09:48 | Outpatient (REF) | payer MEDICARE, SELFPAY ==
[2024-06-17 10:09] LABS: MANUAL DIFF FLAG NO
[2024-06-17 11:17] LABS: Basophils Absolute Auto 0.1 X10*3/uL (0.0-0.2); Eosinophils Absolute Auto 0.1 X10*3/uL (0.0-0.4); Eosinophils Percent Auto 1.9 % (0-4); Hematocrit 38.9 % (37.0-47.0); Hemoglobin 13.2 g/dl (12.0-16.0); Imm Gran Abs Auto 0.03 X10*3/uL (0.00-0.03); Imm Gran Pct Auto 0.4 % (0.0-0.4); Lymphocytes Absolute Auto 1.2 X10*3/uL (1.2-4.9); Lymphocytes Percent Auto 16.8 % (20-40); Mean Corpuscular HGB Conc 33.9 g/dl (31.0-35.0); Mean Corpuscular Hemoglobin 30.8 pg (27.0-33.0); Mean Corpuscular Volume 90.7 fL (80.0-98.0); Mean Platelet Volume 9.9 fL (9.4-12.3); Monocytes Absolute Auto 0.4 X10*3/uL (0.1-1.2); Monocytes Percent Auto 6.2 % (2-11); Neutrophils Absolute Auto 5.1 x10*3/uL (2.0-8.3); Neutrophils Percent Auto 73.7 % (45-73); Platelet Count 247 X10*3/uL (160-400); Red Blood Count 4.29 X10*6/uL (4.20-5.50); Red Cell Distribution Width 13.1 % (11.0-16.0)
[2024-06-17 11:27] LABS: Estimated Average Glucose 126 mg/dL; Hemoglobin A1C 141.8793 umol/L; Total Hemoglobin (HGBA1C) 3348.0669 umol/L
[2024-06-17 12:02] LABS: Alanine Aminotransferase 20 U/L (0-31); Albumin Level 4.5 g/dL (3.5-5.0); Alkaline Phosphatase 87 U/L (39-117); Anion Gap 13 (12-20); Aspartate Amino Transferase 23 U/L (5-31); Bilirubin Total 1.1 mg/dL (0.0-1.0); Blood Urea Nitrogen 15 mg/dL (9-16); Calcium 9.5 mg/dL (8.4-10.2); Carbon Dioxide 23 mmol/L (22-29); Chloride 108 mmol/L (96-108); Cholesterol 165 mg/dL (<200); Estimated Glomerular Filt Rate > 60; Glucose Random 127 mg/dL (60-115); HDL Cholesterol 47 mg/dL (>40); LDL Cholesterol Calculated 74 mg/dL (<100); Sodium 140 mmol/L (135-145); Total Protein 7.5 g/dL (6.5-8.0); Triglycerides 221 mg/dL (<150)
[2024-06-17 12:20] LABS: Free T4 (Free Thyroxine) 1.09 ng/dL (0.71-1.85); Thyroid Stimulating Hormone 2.61 uIU/mL (0.32-4.0); Vitamin D 25-OH Total 40.7 ng/mL (>30)
[2024-06-17 12:37] LABS: Vitamin B12 372 pg/mL (200-900)
== END 2024-06-17 09:49 | disposition home or self-care (01) ==
LOC: HO.LAB 09:48
PROVIDERS: PCP Internal Medicine; Visit Provider Internal Medicine
DX: R73.02 Impaired glucose tolerance (oral) (principal); E78.00 Pure hypercholesterolemia, unspecified
CPT/HCPCS: 36415; 80053; 80061; 82306; 82607; 82746; 83036; 84439; 84443; 85025

== ENCOUNTER 2024-06-21 09:32 | Outpatient (AMB) | payer MEDICARE, SELFPAY ==
[2024-06-21 09:34] VITALS: BP 130/68; PULSE 56; O2SAT 92; BMI 32.8
--- NOTE | 2024-06-21 09:34 | A.OFFPC_ITS ---
Vital Signs 06/21/24 09:34 Height 5 ft 4 in Weight 191 lb BMI 32.8 BP 130/68 Blood Pressure Location Lt brachial Position Sitting Pulse 56 Pulse Source Pulse Oximeter Pulse Oximetry (%) 92 Oxygen Delivery Method Room Air Intake Visit Reasons: Pre-op Clearance, hypercholesterol , HTN Allergies levofloxacin [From Levaquin] Allergy (Mild, Verified 06/21/24 09:35) NAUSEA,WEAKNESS penicillin G [Penicillin G] Allergy (Mild, Verified 06/21/24 09:35) breathing issue as a child penicillin V Allergy (Unknown, Verified 06/21/24 09:35) breathing issue as a child Medication List - Last Reconciled 06/21/24 by Eugenio Lopez MD carvedilol 25 mg PO BID 90 days cetirizine (Zyrtec) 10 mg PO DAILY PRN cholecalciferol (vitamin D3) 25 mcg PO DAILY levothyroxine 100 mcg PO QAM lisinopril 10 mg PO DAILY simvastatin 40 mg PO QPM spironolactone 25 mg PO DAILY warfarin 5 mg See Protocol PO DAILY warfarin 7.5 mg See Protocol PO DAILY 90 days Tobacco use date assessed: 06/21/24 Fall risk assessment: No Falls in past year Last assessed Fall Risk: 06/21/24 Dental Screening Dental Screen Date: 06/21/24 Did you have a dental visit in the last 12 months?: Yes Did you have a dental problem in the last 6 months where you did not have access to dental care?: No Was dental information given to patient?: Patient has dentist HPI Pre-op Clearance, hypercholesterol , HTN HPI Details The patient is a 69-year-old female presenting for a preoperative evaluation for a colonoscopy scheduled on July 12. The colonoscopy is a part of routine checks. The patient's medical history includes several chronic conditions. Hypertension has been managed with carvedilol 25 mg twice daily, and her current blood pressure is reported as well-controlled. She has a history of allergy rhinitis for which she takes Zyrtec regularly. For hyperlipidemia, she is taking simvastatin 40 mg, with recent lab results indicating triglyceride levels of 221 mg/dL, which are above the desired level of 150 mg/dL. Her low-density lipoprotein cholesterol is satisfactorily controlled at 74 mg/dL. The patient has Type 2 Diabetes Mellitus, with a fasting blood glucose recorded at 127 mg/dL and an A1c of 6.0%. Previous A1c levels have ranged from 6.2% to 6.4%. Despite her A1c being below the diagnostic threshold of 6.5% for diabetes, her fasting blood glucose indicates a state of diabetes. She is counseled currently as prediabetic with a focus on monitoring her condition. She is also managing a condition of hypothyroidism with levothyroxine 100 micrograms daily. Regarding anticoagulation therapy, she is on Coumadin and requires a bridging strategy with Lovenox injections, which must commence five days prior to her colonoscopy. Earwax impaction was also addressed during the visit, with a lavage performed to address reports of unusual sounds dwight to wind rushing in her ears. The patient's hearing issue with excessive earwax buildup is well-documented. - Routine colonoscopy scheduled for . - Scheduled mammogram in June 2023. - Blood pressure controlled with carvedi lol. - Current management of Type 2 Diabetes Mellitus includes maintaining A1c below 6.4%. - Regular allergy management with Zyrtec . - Statin therapy for cholesterol managem ent. - Thyroid function maintained with levot hyroxine. - Vaccinations updated: flu shot given o n March 29, completed shingles and tetanus vaccines. - Evaluation advised for triglyceride le vels; recent measurement at 221 mg/dL. - Dietary and exercise guidance to manag e prediabetes and hyperlipidemia. - Alcohol consumption: approximately twi ce a month; most recently consumed wine. - Never smokes or uses recreational drug s. - Active lifestyle includes weekly [employer] sessions. - Upcoming seven-day cruise planned with out her for companionship with a friend. - General: Denies dizziness, nausea, fev er, or chest pain. - Cardiovascular: Denies recent palpitat ions or shortness of breath. - Ears: Experiences unusual sounds/vibra tions, attributed to earwax. - Blood glucose: 127 mg/dL (elevated fas ting glucose). - Hemoglobin A1c: 6.0% (below diagnostic threshold for diabetes, improved from previous assessments). - Triglycerides: 221 mg/dL (needs to be <150 mg/dL). - LDL cholesterol: 74 mg/dL (well-contro lled). - All other labs within normal limits in cluding B12, vitamin D, folic acid, and thyroid function. [facility] Medical History Generalized anxiety disorder Adult general medical exam Ductal carcinoma in situ (DCIS) of left breast Impaired glucose tolerance Hypertension Factor 5 Leiden mutation, heterozygous Hypothyroid Hypercholesterolemia Left renal stone Obesity (BMI 30-39.9) Asthma Cardiomyopathy Surgical History History of colonoscopy History of urologic surgery History of surgery History of lithotripsy History of carpal tunnel release History of foot surgery History of lumpectomy of left breast History of cataract surgery Family History Father Myocardial infarction Mother No problems noted. Maternal Grandfather Myocardial infarction CVD (cardiovascular disease) Maternal Uncle Myocardial infarction CVD (cardiovascular disease) Brother In good health Sister In good health Mental health disorder Sister In good health Son In good health Substance use disorder Son In good health Social History (Updated 06/21/24 @ 09:50 by Eugenio Lopez MD) Housing: House Alcohol intake: current Comment: twice a month1 glass Patient Tobacco Use Status: Never used Tobacco Tobacco use type: Cigarette e-Cigarette/Vaping Use: Never Used Second Hand Smoke Exposure: No service: No Current occupational status: employed Cognitive needs: No Hearing needs: No Vision needs: No Questionnaire PHQ-9 Over the last 2 weeks, how often have you been bothered by any of the following problems? 1. Little interest or pleasure in doing things: not at all 2. Feeling down, depressed, or hopeless: not at all 3. Trouble falling or staying asleep, or sleeping too much: several days 4. Feeling tired or having little energy: not at all 5. Poor appetite or overeating: not at all 6. Feeling bad about yourself - or that you are a failure or have let yourself or your family down: not at all 7. Trouble concentrating on things, such as reading the newspaper or watching television: not at all 8. Moving or speaking so slowly that other people could have noticed. Or the opposite - being so fidgety or restless that you have been moving around a lot more than usual: not at all 9. Thoughts that you would be better off or of hurting yourself in some way: not at all Total score: 1 Depression Screening Interpretation: Negative Depression Screening Done: Yes 40216 - PHQ-9 Billing: Yes Source: Developed by Drs. Momo Zhang, Ilan Chi and colleagues, with an educational esau from [employer]. Thrive Questionnaire Date Thrive assessed: 06/21/24 I am a: Patient What is your living situation today?: I have a steady place to live Within the past 12 months, did the food you bought not last and you didn't have the money to get more?: Never true Within the past 12 months, did you worry whether your food would run out before you got money to buy more?: Never true Do you have trouble paying for medicines?: No Do you have trouble getting transportation to medical appointments?: No Do you have trouble paying your heating and electricity bill?: No Do you have trouble taking care of your child, family member or friend?: No Do you have trouble with day-to-day activities such as bathing, preparing meals, shopping, managing finances, etc.?: No Are you currently unemployed and looking for a job?: No Are you interested in more education?: No Currently or been in a relationship where the following occur: No concerns reported THRIVE Score: 0 AUDIT C Alcohol Use Questionnaire (AUDIT-C) 2. How many drinks containing alcohol do you have on a typical day when you are drinking?: 1 or 2 3. How often do you have six or more drinks on one occasion?: Never Total Score: 0 SALAS-7 AMB Questionnaire SALAS-7 Date SALAS - 7 assessed: 06/21/24 Feeling nervous, anxious, or on edge: 0 = Not at all Not being able to stop or control worryin = Not at all Worrying too much about different things: 0 = Not at all Trouble relaxin = Not at all Being so restless that it is hard to sit still: 0 = Not at all Becoming easily annoyed or irritable: 0 = Not at all Feeling afraid as if something awful might happen: 0 = Not at all Total SALAS-7 score (0-4 normal; 5-9 mild; 10-14 moderate; 15-21 severe): 0 Source: Developed by Samia Alatorre Kurt Kroenke and colleagues, with an educational esau from [employer]. Review of Systems Const Denies poor appetite and Denies weakness Eyes Denies no additional complaints ENT Reports Normal hearing present, Denies dizziness, Denies nasal congestion, Denies tinnitus and Denies sore throat Card Denies chest pain, Denies syncope, Denies rapid heart rate and Denies dyspnea Resp Denies cough and Denies dyspnea GI Denies change in stool character, Reports constipation, Denies diarrhea, Denies nausea and Denies vomiting Denies urinary frequency, Denies difficulty voiding and Denies dysuria Neuro Reports Normal hearing present, Denies confusion, Denies dizziness, Denies syncope and Denies weakness Psych Denies confusion Physical exam (Primary Care) Vital Signs: Last Vital Signs Pulse 56 06/21/24 09:34 BP 130/68 06/21/24 09:34 Pulse Ox 92 06/21/24 09:34 Oxygen Delivery Method Room Air 06/21/24 09:34 BMI result Body Mass Index 32.8 Tobacco/Smoking Status: Tobacco use Status Tobacco use date assessed 06/21/24 06/21/24 09:39 Patient Tobacco Use Status Never used Tobacco 06/21/24 09:39 Tobacco use type Cigarette 06/21/24 09:39 e-Cigarette/Vaping Use Never Used 06/21/24 09:39 PHQ-9: PHQ-9 Score PHQ-9: Total score 1 06/21/24 09:39 Depression Screening Interpretation: Negative Thrive Assessment: Date of Thrive Assessment Date Thrive assessed 06/21/24 06/21/24 09:39 Currently or been in a relationship where the following occur: No concerns reported Const General: No confusion Orientation/consciousness: No confusion HENMT Other: impactedcerumen R ear Neuro General: No confusion Cranial nerves: Yes Normal hearing present Office Procedures Cerumen Removal From which ear canal was the cerumen removed: right Removal: otoscope w/curette and cerumen loop/spoon Notes: patient tolerated procedure well, no complications and ear canal clear [id number] Wax Removal by Spoon/Curette Coding Level of Care Code Est Pt Level 4 (34237) Complex EM visit Add On G2211 Diagnoses Preop exam for internal medicine Z01.818 Factor 5 Leiden mutation, heterozygous D68.51 Essential hypertension I10 Hypertension type: essential hypertension Acquired hypothyroidism E03.9 Hypothyroidism type: acquired Hypercholesterolemia E78.00 Dilated cardiomyopathy I42.0 Cardiomyopathy type: dilated History of left breast cancer Z85.3 Impacted cerumen of right ear H61.21 CPT Codes Office Procedure - CPT: 26466-Fxi Wax Removal by Spoon/Curette ([id number]) Additional Codes PHQ-9 - 78698 - PHQ-9 Billing: Yes ([id number]) Assessment & Plan Assessment & Plan (1) Preop exam for internal medicine: Code(s): Z01.818 - Encounter for other preprocedural examination Category: Medical (2) Factor 5 Leiden mutation, heterozygous: Code(s): D68.51 - Activated protein C resistance Category: Medical (3) Hypertension: Code(s): I10 - Essential (primary) hypertension Category: Medical Qualifiers: Hypertension type: essential hypertension Qualified Code(s): I10 - Essential (primary) hypertension (4) Hypothyroid: Code(s): E03.9 - Hypothyroidism, unspecified Category: Medical Qualifiers: Hypothyroidism type: acquired Qualified Code(s): E03.9 - Hypothyroidism, unspecified (5) Hypercholesterolemia: Code(s): E78.00 - Pure hypercholesterolemia, unspecified Category: Medical (6) Cardiomyopathy: Comment: Echocardiogram October 2019 EF 55-60% paradoxical synergistic septal wall consistent with left bundle branch block Code(s): I42.9 - Cardiomyopathy, unspecified Category: Medical Qualifiers: Cardiomyopathy type: dilated Qualified Code(s): I42.0 - Dilated cardiomyopathy (7) History of left breast cancer: Comment: 2012 Code(s): Z85.3 - Personal history of malignant neoplasm of breast Category: Medical (8) Impacted cerumen of right ear: Code(s): H61.21 - Impacted cerumen, right ear Category: Medical Plan: ear irrigation R ear TM intact Plan - Preoperative preparation for colonoscopy discussed, including discontinuing Coumadin five days prior and starting Lovenox bridging. - Continue current antihypertensive, antiallergic, antidiabetic, and thyroid therapy. - Lifestyle modification and dietary advice to manage triglycerides and maintain diabetes under control. - Regular monitoring of blood glucose and prothrombin time post-procedure to ensure stable anticoagulation therapy. - Ear drops recommended for future wax management. I discussed with the patient the current management strategies for her chronic conditions and the importance of maintaining control, especially regarding her diabetes and lipid levels. Emphasized the bridging protocol involving Coumadin and Lovenox for her upcoming colonoscopy to minimize bleeding risks. We reviewed her audiological issue related to earwax, which had been addressed during the visit. The patient was advised about her triglyceride levels and the relevance of further lifestyle modifications to improve her metabolic parameters. I reminded the patient of the necessity to get an EKG prior to her procedure and confirmed her understanding of the procedure preparation protocol. - Pause Coumadin five days before colonoscopy; start Lovenox injections. - Resume Coumadin post-procedure and check INR for appropriate levels. - Increase physical activity and adhere to a healthy diet. - Use ear drops as discussed for earwax buildup management. - Monitor blood glucose levels regularly and maintain adherence to prescribed medication regimen. - Complete EKG as soon as possible before the procedure. - Stay hydrated and continue engaging in weekly physical activities like bowling. Orders: Orders ECG 12 lead EKG Today Z01.818 - Encounter for other preprocedural examination Medications: New enoxaparin (Lovenox) 80 mg (0.8 mL) subcut Q12H 10 days 16 mL 1RF D68.51 - Activated protein C resistance
== END 2024-06-21 10:07 | disposition home or self-care (01) ==
PROVIDERS: PCP Internal Medicine; Visit Provider Internal Medicine
DX: I42.0 Dilated cardiomyopathy (principal); D68.51 Activated protein C resistance; Z01.818 Encounter for other preprocedural examination; I10 Essential (primary) hypertension; E03.9 Hypothyroidism, unspecified; E78.00 Pure hypercholesterolemia, unspecified; Z85.3 Personal history of malignant neoplasm of breast; H61.21 Impacted cerumen, right ear

== ENCOUNTER → 2024-06-21 09:32 | Outpatient (BNVA) | payer MEDICARE, SELFPAY | PROVIDERS: PCP Internal Medicine; Visit Provider Internal Medicine | DX: Z01.818 Encounter for other preprocedural examination (principal); H61.21 Impacted cerumen, right ear; I10 Essential (primary) hypertension; J30.9 Allergic rhinitis, unspecified; E11.9 Type 2 diabetes mellitus without complications; E03.9 Hypothyroidism, unspecified; D68.51 Activated protein C resistance; E78.00 Pure hypercholesterolemia, unspecified; I42.0 Dilated cardiomyopathy; Z85.3 Personal history of malignant neoplasm of breast; Z79.899 Other long term (current) drug therapy | CPT/HCPCS: 69210; 96127; 99212 ==

== ENCOUNTER → 2024-07-06 09:31 | Outpatient (BNVA) | payer MEDICARE, SELFPAY | PROVIDERS: PCP Internal Medicine; Visit Provider Internal Medicine ==

== ENCOUNTER → 2024-07-09 06:30 | Outpatient (REF) | payer MEDICARE, SELFPAY ==
--- NOTE | 2024-07-09 06:43 | ECG_ITS ---
Test Reason : pre op Blood Pressure : */* mmHG Vent. Rate : 66 BPM Atrial Rate : 66 BPM P-R Int : 172 ms QRS Dur : 160 ms QT Int : 454 ms P-R-T Axes : 48 -14 76 degrees QTcB Int : 475 ms Normal sinus rhythm Left bundle branch block Abnormal ECG When compared with ECG of 10-Apr-2018 07:54, No significant change was found Referred By: Eugenio Lopez Electronically Signed By: MARK CASILLAS
== END ==
LOC: HO.CARD 06:30
PROVIDERS: PCP Internal Medicine; Visit Provider Internal Medicine
DX: Z01.818 Encounter for other preprocedural examination (principal)
CPT/HCPCS: 93005

== ENCOUNTER → 2024-07-09 06:43 | Outpatient (BNV) | payer MEDICARE, SELFPAY | PROVIDERS: PCP Internal Medicine; Visit Provider Internal Medicine | DX: R94.31 Abnormal electrocardiogram [ECG] [EKG] (principal); I44.7 Left bundle-branch block, unspecified | CPT/HCPCS: 93010 ==

== ENCOUNTER 2024-07-12 09:55 | Day surgery (SDC) | payer MEDICARE, SELFPAY ==
--- NOTE | 2024-07-09 10:04 | HO.ANESPROP2 ---
HPI - Anesthesia Eval Consult details Narrative: 69yo F for Colonoscopy Medically optimized per PCP (EKG pending) Factor V with hx clots - coumadin with lovenox bridge for colo Nonischemic CMP (EF normalized). Follows [facility] Cardiology. Last visit 08/2023. Stable. PMFSH Active Problems Active Problems: All Active Problems Impacted cerumen of right ear (Acute) History of left breast cancer (Acute) Preop exam for internal medicine (Acute) Colon cancer screening (Acute) Medicare annual wellness visit, subsequent (Acute) Fracture of thumb, left, closed (Acute) Nephrolithiasis (Acute) Gross hematuria (Acute) Generalized anxiety disorder (Acute) Fall (Acute) Right hip pain (Acute) Osteopenia (Acute) Phlebitis and thrombophlebitis of unspecified femoral vein (Acute) Current use of anticoagulant therapy (Acute) Impaired glucose tolerance (Acute) Hypertension (Acute) Factor 5 Leiden mutation, heterozygous (Acute) Hypothyroid (Acute) Hypercholesterolemia (Acute) Obesity (BMI 30-39.9) (Acute) Cardiomyopathy (Acute) Past Medical History Medical History (Updated 07/08/24 @ 14:38 by Meagan Sullivan RN) Urinary incontinence Murmur Anxiety Left bundle branch block DVT (deep venous thrombosis) Generalized anxiety disorder Adult general medical exam Ductal carcinoma in situ (DCIS) of left breast Impaired glucose tolerance Hypertension Factor 5 Leiden mutation, heterozygous Hypothyroid Hypercholesterolemia Left renal stone Obesity (BMI 30-39.9) Asthma Cardiomyopathy Family History Family History Father Myocardial infarction Mother No problems noted. Maternal Grandfather Myocardial infarction CVD (cardiovascular disease) Maternal Uncle Myocardial infarction CVD (cardiovascular disease) Brother In good health Sister In good health Mental health disorder Sister In good health Son In good health Substance use disorder Son In good health Surgical History Surgical History (Updated 07/08/24 @ 14:40 by Meagan Sullivan RN) Hx of hand surgery Hx of cardiac catheterization History of colonoscopy History of urologic surgery History of surgery History of lithotripsy History of carpal tunnel release History of foot surgery History of lumpectomy of left breast History of cataract surgery Social History Social History (Updated 06/21/24 @ 09:50 by Eugenio Lopez MD) Housing: House Alcohol intake: current Comment: twice a month1 glass Patient Tobacco Use Status: Never used Tobacco Tobacco use type: Cigarette e-Cigarette/Vaping Use: Never Used Second Hand Smoke Exposure: No service: No Current occupational status: employed Cognitive needs: No Hearing needs: No Vision needs: No Meds Allergies Allergy/AdvReac Type Severity Reaction Status Date / Time levofloxacin [From Levaquin] Allergy Mild NAUSEA,WEAK Verified 07/06/24 09:32 NESS penicillin G [Penicillin G] Allergy Mild breathing Verified 07/06/24 09:32 issue as a child penicillin V Allergy Unknown breathing Verified 07/06/24 09:32 issue as a child Home Medications ?Medication ?Instructions ?Recorded ?Confirmed ?Last Taken ?Type cholecalciferol (vitamin D3) 25 25 mcg PO DAILY 08/14/20 07/08/24 Unknown History mcg (1,000 unit) capsule cetirizine 10 mg tablet (Zyrtec) 10 mg PO DAILY 07/08/24 07/08/24 Unknown History warfarin 5 mg tablet 10 mg PO DIRECTED 07/08/24 07/08/24 Unknown History Exam Pertinent Lab Results Pertinent Lab Results: Laboratory Tests 06/17/24 10:08 WBC 7.0 Hgb 13.2 Hct 38.9 Plt Count 247 Sodium 140 Potassium 4.0 Chloride 108 Carbon Dioxide 23 BUN 15 Creatinine 0.77 Narrative Narrative: EKG 06/2024 Vent. Rate : 66 BPM Atrial Rate : 66 BPM P-R Int : 172 ms QRS Dur : 160 ms QT Int : 454 ms P-R-T Axes : 48 -14 76 degrees QTcB Int : 475 ms Normal sinus rhythm Left bundle branch block Abnormal ECG When compared with ECG of 10-Apr-2018 07:54, No significant change was found ECHO per cardiology office visit note 2019 EF 55-60. No signif valve disease. Assessment and Plan Assessment Anesthesia Assessment: Chart Reviewed
[2024-07-12 09:23] VITALS: BMI 33.6
[2024-07-12 10:02] VITALS: BP 98/59; PULSE 84; RESP 18; TEMP 36.4; O2SAT 96; BMI 32.4
[2024-07-12] MEDS: Lactated Ringers 1,000 ML 100 ML IVCONT (10:28)
[2024-07-12 10:50] LABS: Prothrombin Time 11.1 SEC (10.9-12.4)
[2024-07-12 11:04] VITALS: BP 113/76
[2024-07-12 13:15] VITALS: BP 98/61; PULSE 77; RESP 18; TEMP 37.1; O2SAT 99
--- NOTE | 2024-07-12 13:23 | PM.OP ---
Brief Operative Note Date of Service: 07/19/24 Pre-op diagnosis: Screening Post-op diagnosis: other (Diverticulosis) Procedure: Colonoscopy to the cecum Surgeon: Momo Watt MD Anesthesia: MAC Was an Commercial Helic[employer] Pilot used for this Procedure?: No Estimated blood loss (mL): 0 Pathology: none sent Condition: stable Disposition: PACU
[2024-07-12 13:30] VITALS: BP 120/62; PULSE 70; RESP 16; O2SAT 99
[2024-07-12 13:45] VITALS: BP 118/72; PULSE 71; RESP 16; TEMP 37; O2SAT 97
--- NOTE | 2024-07-12 14:02 | OP_ITS ---
DATE OF SERVICE: 07/12/2024 SURGEON: Momo Watt MD INDICATIONS: The patient presents for evaluation of personal history of colon polyps and colorectal cancer screening. Full consent obtained from her for this, including risks of bleeding and perforation. PREOPERATIVE DIAGNOSIS: Colorectal cancer screening and personal history of colon polyp. POSTOPERATIVE DIAGNOSIS: Colorectal cancer screening and personal history of colon polyp, mild diverticulosis, internal hemorrhoids. PROCEDURE PERFORMED: Colonoscopy to cecum. ESTIMATED BLOOD LOSS: COMPLICATIONS: ANESTHESIA: Monitored anesthesia care. ASSISTANTS: SPECIMENS: DESCRIPTION OF PROCEDURE: The patient was placed in the left lateral decubitus position. The digital rectal exam revealed no abnormalities. The Olympus video pediatric colonoscope was entered into the rectum and advanced easily to the cecum. Once in the cecum, I did identify normal-appearing cecal pouch with appendiceal orifice and a normal-appearing ileocecal valve. The entire cecum and ileocecal valve appeared normal, including the appendiceal orifice. There was transillumination of light deep in the right lower quadrant. The scope was slowly withdrawn assessing all mucosal surfaces carefully. Preparation was excellent. I did not visualize any sign of polyps, colitis, nor angiodysplasia. There was a mild amount of sigmoid diverticulosis. In the rectum, scope was retroflexed visualizing internal hemorrhoids, but no other pathology. The rectal mucosa appeared normal. The scope was straightened and withdrawn from the patient. She tolerated the procedure well and was returned to recovery area in stable condition. IMPRESSION: 1. Diverticulosis. 2. Internal hemorrhoids. PLAN: Given her previous history I would recommend a followup coloscopy in 5 years. She was advised to resume her Coumadin and Lovenox today and then follow up with Dr. Lopez and/or the Anticoagulation Clinic as to the adjustment of both of those medications. She will otherwise see me on a p.r.n. basis. MD LUCIE Cedeno/JIN / [phone]
== END 2024-07-12 14:09 | disposition home or self-care (01) ==
PROVIDERS: PCP Internal Medicine; Visit Provider Internal Medicine
PROC: 0DJD8ZZ Inspection of Lower Intestinal Tract, Via Natural or Artificial Opening Endoscopic (ICD-10-PCS; CPT 45378; principal; 2024-07-12 11:20)
DX: Z12.11 Encounter for screening for malignant neoplasm of colon (principal); Z86.0101 Personal history of adenomatous and serrated colon polyps; K57.30 Diverticulosis of large intestine without perforation or abscess without bleeding; K64.8 Other hemorrhoids; I10 Essential (primary) hypertension; I42.0 Dilated cardiomyopathy; D68.51 Activated protein C resistance; E78.00 Pure hypercholesterolemia, unspecified; E11.9 Type 2 diabetes mellitus without complications; J45.909 Unspecified asthma, uncomplicated; E03.9 Hypothyroidism, unspecified; F41.9 Anxiety disorder, unspecified; Z85.3 Personal history of malignant neoplasm of breast; Z79.01 Long term (current) use of anticoagulants; Z79.899 Other long term (current) drug therapy; Z88.0 Allergy status to penicillin; Z88.1 Allergy status to other antibiotic agents
CPT/HCPCS: G0105; 36415; 85610

== ENCOUNTER → 2024-07-15 09:29 | Outpatient (BNVA) | payer MEDICARE, SELFPAY | PROVIDERS: PCP Internal Medicine; Visit Provider Internal Medicine ==

== ENCOUNTER → 2024-08-03 09:53 | Outpatient (BNVA) | payer MEDICARE, SELFPAY | PROVIDERS: PCP Internal Medicine; Visit Provider Internal Medicine ==

== ENCOUNTER → 2024-08-17 12:10 | Outpatient (BNVA) | payer MEDICARE, SELFPAY | PROVIDERS: PCP Internal Medicine; Visit Provider Internal Medicine ==

== ENCOUNTER → 2024-09-14 10:14 | Outpatient (BNVA) | payer MEDICARE, SELFPAY | PROVIDERS: PCP Internal Medicine; Visit Provider Internal Medicine ==

== ENCOUNTER → 2024-09-28 10:37 | Outpatient (BNVA) | payer MEDICARE, SELFPAY | PROVIDERS: PCP Internal Medicine; Visit Provider Internal Medicine Medical Oncology ==

== ENCOUNTER → 2024-10-26 10:03 | Outpatient (BNVA) | payer MEDICARE, SELFPAY | PROVIDERS: PCP Internal Medicine; Visit Provider Internal Medicine Medical Oncology ==

== ENCOUNTER → 2024-11-09 09:43 | Outpatient (BNVA) | payer MEDICARE, SELFPAY | PROVIDERS: PCP Internal Medicine; Visit Provider Internal Medicine Medical Oncology ==

== ENCOUNTER → 2024-11-23 10:30 | Outpatient (BNVA) | payer MEDICARE, SELFPAY | PROVIDERS: PCP Internal Medicine; Visit Provider Internal Medicine Medical Oncology ==

== ENCOUNTER 2024-12-06 10:20 | Outpatient (AMB) | payer MEDICARE, SELFPAY ==
--- NOTE | 2024-12-06 10:34 | MHC.OFFVISCO ---
Intake Intake Visit Reasons: Anticoagulation Allergies levofloxacin [From Levaquin] Allergy (Mild, Verified 12/06/24 10:26) NAUSEA,WEAKNESS penicillin G [Penicillin G] Allergy (Mild, Verified 12/06/24 10:26) breathing issue as a child penicillin V Allergy (Unknown, Verified 12/06/24 10:26) breathing issue as a child Medication List - Last Reconciled 12/06/24 by Carrol Cox RN carvedilol 25 mg PO BID 90 days cetirizine (Zyrtec) 10 mg PO DAILY cholecalciferol (vitamin D3) 25 mcg PO DAILY levothyroxine 100 mcg PO QAM lisinopril 10 mg PO DAILY simvastatin 40 mg PO QPM spironolactone 25 mg PO DAILY warfarin 10 mg See Protocol PO DIRECTED warfarin 7.5 mg See Protocol PO DAILY 90 days Nursing Note Pt to ACS for meter to meter check. Meds reviewed. No changes. Pt's meter checked for last 5 INR's which correlated with ACS. Pt demonstrated good technique in performing the test. INR on pt's meter: 2.5 in therapeutic range of 2-3 ACS meter: 2.5 No changes in health, diet, supplements or meds No signs and symptoms of bleeding or bruising or clotting Risk scores done Dose: keep same dose of 7.5mg daily Retest: 2 weeks Anti-Coag Initial Assessment Social Hx Patient Tobacco Use Status: Never used Tobacco Tobacco use type: Cigarette alcohol intake: current Alcohol intake frequency: does not drink Questionnaires HAS-BLED Does the patient had uncontrolled Hypertension?: No Does the patient have renal disease?: No Does the patient have liver disease?: No Does the patient have a history of stroke?: No Has the patient had major bleeding or predisposition to bleeding?: No Does the patient have labile INRs?: No Is the patient over 65 years of age?: Yes Is the patient on medications that gives them a predisposition to bleeding?: Yes Does the patient use alcohol?: Yes HAS-BLED Score: 3 CHADSVASC Age: 66-74 Gender: Female Does the patient have a history of CHF?: No Does the patient have a history of Hypertension?: No Does the patient have a history of Stroke/TIA/Thromboembolism?: No Does the patient have a history of Vascular Disease (prior NE, PAD or aortic plaque)?: No Does the patient have a history of Diabetes?: No CHADS VACS Score: 2 Zane Prediction Score Rsk VTE Active Cancer: No Previous VTE, excluding superficial vein thrombosis: Yes Reduced mobility: No Already known Thrombophilic Condition: Yes With-in last month Trauma and/or Surgery: No Elderly 70 year or older: No Heart and/or Respiratory Failure: No Acute Myocardial infarction and/or Ischemic Stroke: No Acute Infection and/or Rheumatologic Disorder: No Obesity (BMI 30 or greater): Yes Ongoing Hormonal Treatment: No Score: 7 Zane Score less than 4; Low Risk of VTE Zane Score 4 or greater; High Risk of VTE Coding Level of Care Code Est Patient Level 2 Diagnoses Current use of anticoagulant therapy Z79.01 Time Spent (min) 25 Comment meter to meter Assessment & Plan Assessment & Plan (1) Current use of anticoagulant therapy: Code(s): Z79.01 - intermediate (current) use of anticoagulants Category: Medical
[2024-12-06 10:35] LABS: Prothrombin Time Whole Bld POC 30.1 sec (11.1-13.5); ~PT, ~INR - Anti Coag Clinic 2.5 (0.9-1.1)
--- OUTSIDE RECORDS SUMMARY | 2024-12-06 11:29 | XMS_ITS ---
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 Role Phone Po Eugenio ORTIZ Primary Care Provider Momo Choe [phone] Allergies Allergen (clinical drug ingredient) Drug/Non Drug Allergy documented on EMR Reaction Allergy Type Onset Date Status penicillin G Penicillin G Sodium Unknown Drug Allergy Active REASON FOR VISIT Patient presents today for a COLON SCREENING Medications Medication SIG (Take, Route, Frequency, Duration) Notes Start Date End Date Status Lisinopril 10 MG 1 tablet Orally Once a day for 30 day(s) Active Levothyroxine Sodium 100 MCG 1 tablet on an empty stomach in the morning Orally Once a day Active Spironolactone 25 MG 1 tablet Orally Onc e a day Active ZyrTEC 10 MG 1 tablet Orally Once a day for 30 day(s) Active Warfarin Sodium 10 MG 1 tablet Orally as directed Active Carvedilol 25 MG as directed Orally t wice a day Active Simvastatin 40 MG 1 tablet in the even ing Orally Once a day Active Vitamin D 1000 UNIT 1 tablet Orally Once a day for 30 day(s) Active Social History Tobacco Use: Social History Observation Description Date Details (start date - stop date) Never Smoker NA - NA Tobacco Use/Smoking Question Answer Notes Patient is a nonsmoker Alcohol Screen Question Answer Notes Did you have a drink contain ing alcohol in the past year? Yes How often did you have a dri nk containing alcohol in the past year? Monthly or less (1 point) How many drinks did you have on a typical day when you were drinking in the past year? 1 or 2 drinks (0 point) How often did you have 6 or more drinks on one occasion in the past year? Never (0 point) Points 1 Interpretation Negative Section Notes: Nonsmoker; no sig alcohol Vital Signs Temperature 97.7 degrees Fahrenheit 03/31/20 24 Blood pressure systolic 000 mm Hg 03/31/20 24 Blood pressure diastolic 00 mm Hg 024 Height 64 in 03/31/2024 Weight 194 lb 8 oz lbs 03/31/2024 BMI 33.38 kg/m2 03/31/2024 Encounters Encounter Location Date Provider Diagnosis [facility] [address] [place] [address] 03/31/2024 Momo Watt Serrated polyp of co lia K63.5 ; Preprocedural examination Z01.818 and Encounter for screening for malignant neoplasm of colon Z12.11 Assessments Encounter Date Diagnosis (ICD Code) Assessment Notes Treatment Notes Treatment Clinical Notes Section Notes 03/31/2024 Serrated polyp of colon (ICD-10 - K63.5) Overall, Trevor appears quite well. Given the history of a serrated polyp removed over 5 years ago, I did recommend a followup colonoscopy for further screening purposes. We did review the rationale for that in regard to colon cancer prevention. Full consent is obtained for this, including risks of bleeding and perforation. The procedure will be done with monitored anesthesia care. She was given the below instructions in regard to adjusting her medications for the procedure. Trevor was comfortable with this plan. Thank you again for allowing me to participate in Trevor's care. I shall continue to keep you advised of her progress. 03/31/2024 Preprocedural examination (ICD-10 - Z01.818) Overall, Trevor appears quite well. Given the history of a serrated polyp removed over 5 years ago, I did recommend a followup colonoscopy for further screening purposes. We did review the rationale for that in regard to colon cancer prevention. Full consent is obtained for this, including risks of bleeding and perforation. The procedure will be done with monitored anesthesia care. She was given the below instructions in regard to adjusting her medications for the procedure. Trevor was comfortable with this plan. Thank you again for allowing me to participate in Trevor's care. I shall continue to keep you advised of her progress. 03/31/2024 Encounter for screening for malignant neoplasm of colon (ICD-10 - Z12.11) Stop Coumadin for 5 days before the colonoscopy and get a prescription fpr Lovenox injections from Dr. Lopez. Do not take the Spironolactone the day before or on the day of the colonoscopy Overall, Trevor appears quite well. Given the history of a serrated polyp removed over 5 years ago, I did recommend a followup colonoscopy for further screening purposes. We did review the rationale for that in regard to colon cancer prevention. Full consent is obtained for this, including risks of bleeding and perforation. The procedure will be done with monitored anesthesia care. She was given the below instructions in regard to adjusting her medications for the procedure. Trevor was comfortable with this plan. Thank you again for allowing me to participate in Trevor's care. I shall continue to keep you advised of her progress. Plan Of Treatment Treatment Notes Assessment Notes Encounter for screening for malignant neoplasm of colon Stop Coumadin for 5 days before the colonoscopy and get a prescription fpr Lovenox injections from Dr. Lopez. Do not take the Spironolactone the day before or on the day of the colonoscopy Future Test Test Name Order Date COLONOSCOPY 03/31/2024 Next Appt Details Follow Up: prn, Reason: Progress Notes * VALENTIN PARKEREDOB: [birth year] (69 yo F)Acc No.[id number]:03/31/2024 Progress Notes Patient:?TREVOR PARKER Provider:?Momo Watt MD :1955???Age:69 Y???Sex:Female D ate:03/31/2024 Address:[address] [place], [place] [id number] Pcp:Eugenio Lopez MD Subjective: * Chief Complaints: * ???Patient presents today fo r a COLON SCREENING * HPI: ???incontinence:? I saw Trevor in the office today for evaluation of her history of a serrated colon polyp and need for colorectal cancer screening. ?I last saw Trevor in November of 2018, which time she underwent a followup screening colonoscopy with removal of a small sessile serrated colon polyp. She presently feels well. She enjoys a good appetite, without any significant heartburn or dysphagia. Her bowel movements have been regular and without any signs of bleeding. She denies abdominal pain, jaundice, or unintentional weight loss. She denies any known family history of colon cancer. * ROS:?General/Constitutional:?Change in appetite?denies.?Chills?denies.?Fatigue?denies.?Ophthalmologic:?Comments?all negative.?ENT:?Comments?all negative.?Respiratory:?hemoptysis?denies.?Cough?denies.?Cardiovascular:?Chest pain?denies.?Orthopnea?denies.?Gastrointestinal:?Comments?See HPI for details.?Genitourinary:?Hematuria?denies.?Dysuria?denies.?Musculoskeletal:?Painful joints?denies.?Weakness?denies.?Skin:?Itching?denies.?Rash?denies.?Neurologic:?Headache?denies.?Seizures?denies.?Psychiatric:?Comments?all negative.? * Medical History:? * Surgical History:?Bone spur in fifth digit left hand 2018Lumpectomy left-DCIS 2013Bone spur on left foot 2012Cataracts bilateral Broken 5th digit on right hand Carpal tunnel right * Hospitalization/Major Diagno stic Procedure:?No Hospitalization History. * Family History:?Father: whitley null.?Mother: , respitory failure.? No known hx of colorectal cancer. * Social History:?Tobacco Use:?Tobacco Use/Smoking?Patient is a?nonsmoker.?Drugs/Alcohol:?Alcohol Screen?Did you have a drink containing alcohol in the past year??Yes,?How often did you have a drink containing alcohol in the past year??Monthly or less (1 point), How many drinks did you have on a typical day when you were drinking in the past year??1 or 2 drinks (0 point),?How often did you have 6 or more drinks on one occasion in the past year??Never (0 point),?Points?1,?Interpretation?Negative.?Miscellaneous:?Marital status: . Occupation: Works for [employer] in [employer]---retired. ???Nonsmoker; no sig alcohol. * Medications:?TakingZyrTEC 10 MG Tablet 1 tablet Orally Once a dayCarvedilol 25 MG Tablet as directed Orally twice a daySimvastatin 40 MG Tablet 1 tablet in the evening Orally Once a dayLevothyroxine Sodium 100 MCG Capsule 1 tablet on an empty stomach in the morning Orally Once a daySpironolactone 25 MG Tablet 1 tablet Orally Once a dayLisinopril 10 MG Tablet 1 tablet Orally Once a dayVitamin D 1000 UNIT Tablet 1 tablet Orally Once a dayWarfarin Sodium 10 MG Tablet 1 tablet Orally as directedTaking ZyrTEC 10 MG Tablet 1 tablet Orally Once a dayTaking Carvedilol 25 MG Tablet as directed Orally twice a dayTaking Simvastatin 40 MG Tablet 1 tablet in the evening Orally Once a dayTaking Levothyroxine Sodium 100 MCG Capsule 1 tablet on an empty stomach in the morning Orally Once a dayTaking Spironolactone 25 MG Tablet 1 tablet Orally Once a dayTaking Lisinopril 10 MG Tablet 1 tablet Orally Once a dayTaking Vitamin D 1000 UNIT Tablet 1 tablet Orally Once a dayTaking Warfarin Sodium 10 MG Tablet 1 tablet Orally as directedDiscontinuedZoloft 100 MG Tablet 1 tablet Orally Once a dayAspir-81 81 MG Tablet Delayed Release 1 tablet Orally Once a dayFish Oil 1000 MG Capsule 1 capsule Orally Twice a daySertraline HCl 100 MG Tablet 1 tablet Orally Once a dayAlendronate Sodium 70 MG Tablet 1 tablet Orally weeklyMedication List reviewed and reconciled with the patientDiscontinued Zoloft 100 MG Tablet 1 tablet Orally Once a dayDiscontinued Aspir-81 81 MG Tablet Delayed Release 1 tablet Orally Once a dayDiscontinued Fish Oil 1000 MG Capsule 1 capsule Orally Twice a dayDiscontinued Sertraline HCl 100 MG Tablet 1 tablet Orally Once a dayDiscontinued Alendronate Sodium 70 MG Tablet 1 tablet Orally weeklyMedication List reviewed and reconciled with the patient * Allergies:?Penicillin G Nanoi michael[Allergies Verified] Objective: * Vitals:?Wt: 194 lb 8 oz, Ht: 64 in, BMI:33.38 Index, BP: 000/00 mm Hg, Temp: 97.7. * Examination: ???General Examination: ?GENERAL APPEARANCE:?pleasant, well nourished, well developed, in no acute distress.?EYES:?sclera non-icteric.?ORAL CAVITY:?mucosa moist.?NECK/THYROID:?no cervical lymphadenopathy, neck supple.?SKIN:?nonjaundiced, no spider angiomata.?HEART:?S1, S2 normal.?LUNGS:?clear to auscultation bilaterally.?ABDOMEN:?normal bowel sounds, no guarding or rigidity, no guarding or rigidity, no masses palpable, soft, nontender, nondistended.?EXTREMITIES:?no edema.?NEUROLOGIC:?alert and oriented.? Assessment: * Assessment: 1.?Preprocedural examination - Z01.818 (Primary)?2.?Serrated polyp of colon - K63.5?3.?Encounter for screening for malignant neoplasm of colon - Z12.11? Overall, Trevor appears danis te well. Given the history of a serrated polyp removed over 5 years ago, I did recommend a followup colonoscopy for further screening purposes. We did review the rationale for that in regard to colon cancer prevention. Full consent is obtained for this, including risks of bleeding and perforation. The procedure will be done with monitored anesthesia care. She was given the below instructions in regard to adjusting her medications for the procedure. Trevor was comfortable with this plan. Thank you again for allowing me to participate in Trevor's care. I shall continue to keep you advised of her progress. Plan: * Treatment: 2.?Encounter for screening for malignant neoplasm of colon?Procedure: COLONOSCOPY (Ordered for 03/31/2024)* with MACsched for 07/12/24 at 1:10 pmmiralax Notes: Stop Coumadin for 5 days before the colonoscopy and get a prescription fpr Lovenox injections from Dr. Lopez. Do not take the Spironolactone the day before or on the day of the colonoscopy?? * Procedure Codes:?3017F COLOR ECTAL CA SCREEN DOC [id number] TOBACCO [id number] BP SCR NOT PRFRM REC REASON NOS * Preventive Medicine:? ??Counseling:?Care goal follow-up plan:?Above Normal BMI Follow-up?Giving encouragement to exercise,?BMI management provided?Yes.? ??Urinary Incontinence:?Urinary Incontinence?Assessment:?Present,?Plan of care documented:?Yes,?Type of plan of care:?Lifestyle interventions.? ??Screenings:?Fall Risk Screening?Fall Risk Assessment:?One fall with injury in the past year,?Screening:?One fall without injury in the past year,?Assessment: Not performed, no reason specified,?Plan of Care:?Not documented, no reason specified.? * Follow Up:?prn * * Sign off status: Completed true * Provider:?Momo Watt MD Date:? 024 Generated for Brea boston/Warren/Samantha on:?12/06/2024 11:29 AM EDT History and Physical Notes * HPI (History of Present Illness) Category Sub-Category Detail Notes Category Not es incontinence I saw Trevor in the office today for evaluation of her history of a serrated colon polyp and need for colorectal cancer screening. I last saw Trevor in November of 2018, which time she underwent a followup screening colonoscopy with removal of a small sessile serrated colon polyp. She presently feels well. She enjoys a good appetite, without any significant heartburn or dysphagia. Her bowel movements have been regular and without any signs of bleeding. She denies abdominal pain, jaundice, or unintentional weight loss. She denies any known family history of colon cancer. Examination Category Sub-Category Detail Notes Category Not es General Examination GENERAL APPEARANCE: pleasant , well nourished, well developed, in no acute distress HEAD: EYES: sclera non-icteric EARS: NOSE: THROAT: NECK/THYROID: no cervical lymphade nopathy, neck supple HEART: S1, S2 normal CHEST: LUNGS: clear to auscultatio n bilaterally ABDOMEN: normal bowel sounds, no guarding or rigidity, no guarding or rigidity, no masses palpable, soft, nontender, nondistended NEUROLOGIC: alert and oriented SKIN: nonjaundiced, no spi dariel angiomata EXTREMITIES: no edema PERIPHERAL PULSES: BACK: BREASTS: MUSCULOSKELETAL: MALE GENITOURINARY: LYMPH NODES: RECTAL EXAM: FEMALE GENITOURINARY: ORAL CAVITY: mucosa moist
== END 2024-12-06 10:54 | disposition home or self-care (01) ==
LOC: HO.ACS 10:20
PROVIDERS: PCP Internal Medicine; Visit Provider Internal Medicine Medical Oncology
DX: Z79.01 Long term (current) use of anticoagulants (principal)

== ENCOUNTER → 2024-12-06 10:20 | Outpatient (BNVA) | payer MEDICARE, SELFPAY | PROVIDERS: PCP Internal Medicine; Visit Provider Internal Medicine Medical Oncology | DX: I42.9 Cardiomyopathy, unspecified (principal); D68.51 Activated protein C resistance; Z79.01 Long term (current) use of anticoagulants; Z51.81 Encounter for therapeutic drug level monitoring | CPT/HCPCS: 85610; 99212 ==

== ENCOUNTER 2024-12-20 09:20 | Outpatient (AMB) | payer MEDICARE, SELFPAY ==
--- OUTSIDE RECORDS SUMMARY | 2024-07-12 07:20 | XMS_ITS ---
Author Organization [facility] Address [address] [place] [address] Care Team Providers Care Leach Runner Name Role Phone Po Eugenio ORTIZ Primary Care Provider Momo Choe [phone] REASON FOR VISIT serrated polyp colon,screening Problems Problem Type SNOMED Code ICD Code Onset Dates Problem Status W/U Status Risk Notes Problem Diverticulosis o f large intestine without perforation or abscess without bleeding (K57.30) Active confirmed Encounters Encounter Location Date Provider [place] [facility] [place] [facility] [address], [place] [id number] 07/12/2024 Momo Watt Colon cancer scree hector Z12.11 ; Personal history of colonic polyps Z86.0100 ; Diverticulosis of large intestine without perforation or abscess without bleeding K57.30 and Other hemorrhoids K64.8 Assessments Encounter Date Diagnosis (ICD Code) Assessment Notes Treatment Notes Treatment Clinical Notes Section Notes 07/12/2024 Colon cancer screening (ICD-10 - Z12.11) 07/12/2024 Personal history of colonic polyps (ICD-10 - Z86.0100) 07/12/2024 Diverticulosis of large intestine without perforation or abscess without bleeding (ICD-10 - K57.30) 07/12/2024 Other hemorrhoids (ICD-10 - K64.8) Plan Of Treatment No Information Progress Notes * KAYLYN PARKEROB: [birth year] (69 yo F)Acc No.[id number]:07/12/2024 COLON WITH MAC Patient: Ayden TREVOR BONILLA Provider: Ganga Watt MD :[id number] A ge:69 Y S ex:Female Date:07/12/2024 Address:[address] [place] [address] [id number] Pcp:Eugenio Lopez MD Subjective: * Chief Complaints: * 1 . Serrated polyp colon,screening. * Medical History: Objective: * Vitals: Assessment: * Assessment: 1. C olon cancer screening - Z12.11 (Primary) 2 . P ersonal history of colonic polyps - Z86.0100 3 . D iverticulosis of large intestine without perforation or abscess without bleeding - K57.30 4 . O ther hemorrhoids - K64.8 ? Plan: * Treatment: * Procedure Codes: G 0105 COLOREC CANCR SCR; COLNSCPY HI RISK, 0529F INTRVL 3+YRS PTS CLNSCP DOCD, 0528F RCMND FLW-UP 10 YRS DOCD, Modifiers: 1P * * The named appointment provid er may or may not be the originator of this progress note, and it is not deemed complete until electronically signed by the appointment provider. Sign off status: Pending * Provider: Ganga Watt MD Date: 0 07/12/2024 Generated for Brea boston/Warren/Juancarlositting on: 0 12/20/2024 10:07 AM EDT
[2024-12-20 09:22] VITALS: BP 114/60; PULSE 65; TEMP 36.3; O2SAT 95; BMI 33.2
--- NOTE | 2024-12-20 09:22 | A.OFFPC_ITS ---
Vital Signs 12/20/24 09:22 Height 5 ft 4 in Weight 193 lb 8 oz BMI 33.2 BP 114/60 Blood Pressure Location Lt brachial Position Sitting Pulse 65 Pulse Source Pulse Oximeter Temp 97.3 F Temp Source Temporal Artery Scan Pulse Oximetry (%) 95 Oxygen Delivery Method Room Air Intake Visit Reasons: SWV Allergies levofloxacin (From Levaquin) Allergy (Mild, Verified 12/20/24 09:25) NAUSEA,WEAKNESS penicillin G (Penicillin G) Allergy (Mild, Verified 12/20/24 09:25) breathing issue as a child penicillin V Allergy (Unknown, Verified 12/20/24 09:25) breathing issue as a child Medication List - Last Reconciled 12/20/24 by Eugenio Lopez MD carvedilol 25 mg PO BID 90 days cetirizine (Zyrtec) 10 mg PO DAILY cholecalciferol (vitamin D3) 25 mcg PO DAILY levothyroxine 100 mcg PO QAM lisinopril 10 mg PO DAILY simvastatin 40 mg PO QPM spironolactone 25 mg PO DAILY warfarin 10 mg See Protocol PO DIRECTED warfarin 7.5 mg See Protocol PO DAILY 90 days Tobacco use date assessed: 12/20/24 Fall risk assessment: No Falls in past year Last assessed Fall Risk: 12/20/24 Dental Screening Dental Screen Date: 12/20/24 Did you have a dental visit in the last 12 months?: Yes Did you have a dental problem in the last 6 months where you did not have access to dental care?: No Was dental information given to patient?: Patient has dentist HPI SWV HPI Details [facility], [facility], [facility] orthopedics [facility] Ophthalmology [facility] Medical History Urinary incontinence Murmur Anxiety Left bundle branch block DVT (deep venous thrombosis) Generalized anxiety disorder Adult general medical exam Ductal carcinoma in situ (DCIS) of left breast Impaired glucose tolerance Hypertension Factor 5 Leiden mutation, heterozygous Hypothyroid Hypercholesterolemia Left renal stone Obesity (BMI 30-39.9) Asthma Cardiomyopathy Surgical History Hx of hand surgery Hx of cardiac catheterization History of colonoscopy History of urologic surgery History of surgery History of lithotripsy History of carpal tunnel release History of foot surgery History of lumpectomy of left breast History of cataract surgery Family History Father Myocardial infarction Mother No problems noted. Maternal Grandfather Myocardial infarction CVD (cardiovascular disease) Maternal Uncle Myocardial infarction CVD (cardiovascular disease) Brother In good health Sister In good health Mental health disorder Sister In good health Son In good health Substance use disorder Son In good health Social History Housing: House Alcohol intake: current Alcohol intake frequency: does not drink Comment: twice a month1 glass Patient Tobacco Use Status: Never used Tobacco Tobacco use type: Cigarette e-Cigarette/Vaping Use: Never Used Second Hand Smoke Exposure: No service: No Current occupational status: employed Cognitive needs: No Hearing needs: No Vision needs: No Questionnaire PHQ-9 Over the last 2 weeks, how often have you been bothered by any of the following problems? 1. Little interest or pleasure in doing things: not at all 2. Feeling down, depressed, or hopeless: not at all 3. Trouble falling or staying asleep, or sleeping too much: not at all 4. Feeling tired or having little energy: not at all 5. Poor appetite or overeating: not at all 6. Feeling bad about yourself - or that you are a failure or have let yourself or your family down: not at all 7. Trouble concentrating on things, such as reading the newspaper or watching television: not at all 8. Moving or speaking so slowly that other people could have noticed. Or the opposite - being so fidgety or restless that you have been moving around a lot more than usual: not at all 9. Thoughts that you would be better off or of hurting yourself in some w ay: not at all Total score: 0 Depression Screening Interpretation: Negative Depression Screening Done: Yes [id number] - PHQ-9 Billing: Yes Source: Developed by Drs. Momo Zhang, Samia Mckeon, Ilan Bhakta and colleagues, with an educational esau from [employer]. Thrive Questionnaire Date Thrive assessed: 12/13/24 I am a: Patient What is your living situation today?: I have a steady place to live Within the past 12 months, did the food you bought not last and you didn't have the money to get more?: Never true Within the past 12 months, did you worry whether your food would run out before you got money to buy more?: Never true Do you have trouble paying for medicines?: No Do you have trouble getting transportation to medical appointments?: No Do you have trouble paying your heating and electricity bill?: No Do you have trouble taking care of your child, family member or friend?: No Do you have trouble with day-to-day activities such as bathing, preparing meals, shopping, managing finances, etc.?: No Are you currently unemployed and looking for a job?: No Are you interested in more education?: No Please select the resources that you would like help with: None Currently or been in a relationship where the following occur: No concerns reported THRIVE Score: 0 AUDIT C Alcohol Use Questionnaire (AUDIT-C) 1. How often do you have a drink containing alcohol?: Monthly or less 2. How many drinks containing alcohol do you have on a typical day when you are drinking?: 1 or 2 3. How often do you have six or more drinks on one occasion?: Never Total Score: 1 SAALS-7 AMB Questionnaire SALAS-7 Date SALAS - 7 assessed: 12/20/24 Feeling nervous, anxious, or on edge: 0 = Not at all Not being able to stop or control worryin = Not at all Worrying too much about different things: 0 = Not at all Trouble relaxin = Not at all Being so restless that it is hard to sit still: 0 = Not at all Becoming easily annoyed or irritable: 0 = Not at all Feeling afraid as if something awful might happen: 0 = Not at all Total SALAS-7 score (0-4 normal; 5-9 mild; 10-14 moderate; 15-21 severe): 0 Source: Developed by Drs. Momo Zhang, Samia Mckeon, Ilan Bhakta and colleagues, with an educational esau from [employer]. SALAS-7 Assessment Billing SALAS-7 Assessment Tool: SALAS-7 Assessment 69353 Review of Systems Const Denies poor appetite and Denies weakness Eyes Denies no additional complaints ENT Reports Normal hearing present, Denies dizziness, Denies nasal congestion, Den ies tinnitus and Denies sore throat Card Denies chest pain, Denies syncope, Denies rapid heart rate and Denies dyspnea Resp Denies cough and Denies dyspnea GI Denies change in stool character, Reports constipation, Denies diarrhea, Denies nausea and Denies vomiting Denies urinary frequency, Denies difficulty voiding and Denies dysuria Neuro Reports Normal hearing present, Denies confusion, Denies dizziness, Denies syncope and Denies weakness Psych Denies confusion Physical exam (Primary Care) Vital Signs: Last Vital Signs Temp 97.3 F 12/20/24 09:22 Pulse 65 12/20/24 09:22 BP 114/60 12/20/24 09:22 Pulse Ox 95 12/20/24 09:22 Oxygen Delivery Method Room Air 12/20/24 09:22 BMI result Body Mass Index 33.2 Tobacco/Smoking Status: Tobacco use Status Tobacco use date assessed 12/20/24 12/20/24 09:26 Patient Tobacco Use Status Never used Tobacco 12/20/24 09:26 Tobacco use type Cigarette 12/20/24 09:26 e-Cigarette/Vaping Use Never Used 12/20/24 09:26 PHQ-9: PHQ-9 Score PHQ-9: Total score 0 12/20/24 09:26 Depression Screening Interpretation: Negative Thrive Assessment: Date of Thrive Assessment Date Thrive assessed 12/13/24 12/20/24 09:26 Currently or been in a relationship where the following occur: No concerns reported Const General: No confusion Orientation/consciousness: No confusion HENMT Head: Yes normocephalic Ears: external ears normal and TM's normal bilaterally Face and sinus: Yes normal facial exam Mouth: moist mucous membranes Throat: Yes tonsils normal Eyes Conjunctivae: conjunctivae normal Pupils: Equal, round and reactive pupils present and Pupil accommodation reflex normal Direct Ophthalmoscopy: normal light reflex Neck Neck: No lymphadenopathy Thyroid: Thyroid normal Chest Chest palpation & inspection: normal inspection of the chest Resp Effort & Inspection: normal respiratory effort and no audible wheezes Auscultation: clear to auscultation bilaterally, no crackles, no wheezes and lung sounds not diminished Cardio Rate: regular rate Rhythm: regular rhythm Peripheral pulses: radial pulses present and dorsalis pedis present GI Palpation (GI): no masses Auscultation: normal bowel sounds and normoactive bowel sounds Rectal Exam - Female: deferred Skin General skin exam: no rashes or lesions noted Rashes: no rashes Neuro General: No confusion Cranial nerves: Yes Equal, round and reactive pupils present and Yes Normal hearing present Cognition (Neuro): normal cognition Gait exam (Neuro): Normal gait present Motor exam (neuro): 5/5 motor strength present throughout Deep tendon reflexes (DTR's): Right brachioradialis reflex intensity grade: 2+, Left brachioradialis reflex intensity grade: 2+, Right patellar reflex intensity grade: 2+ and Left patellar reflex intensity grade: 2+ Extrem General: No edema Coding Level of Care Code Est Pt Prev Care >65y(91057) Diagnoses Medicare annual wellness visit, subsequent Z00. Dilated cardiomyopathy I42.0 Cardiomyopathy type: dilated Hypercholesterolemia E78.00 Essential hypertension I10 Hypertension type: essential hypertension Factor 5 Leiden mutation, heterozygous D68.51 Impaired glucose tolerance R73.02 Acquired hypothyroidism E03.9 Hypothyroidism type: acquired Osteopenia M85.80 Obesity (BMI 30-39.9) E66.9 History of left breast cancer Z85.3 Generalized anxiety disorder F41.1 Additional Codes SALAS-7 Assessment Billing - SALAS-7 Assessment Tool: SALAS-7 Assessment 01476 ([id number]) PHQ-9 - 74146 - PHQ-9 Billing: Yes ([id number]) Assessment & Plan Assessment & Plan (1) Medicare annual wellness visit, subsequent: Code(s): Z00.00 - Encounter for general adult medical examination without abnormal findings Category: Medical Plan: Patient is advised to eat healthy, keep well hydrated, keep active and have adequate sleep. (2) Cardiomyopathy: Comment: Echocardiogram October 2019 EF 55-60% paradoxical synergistic septal wall consistent with left bundle branch block Code(s): I42.9 - Cardiomyopathy, unspecified Category: Medical Qualifiers: Cardiomyopathy type: dilated Qualified Code(s): I42.0 - Dilated cardiomyopathy Plan: Continue to follow up with Cardiology (3) Hypercholesterolemia: Code(s): E78.00 - Pure hypercholesterolemia, unspecified Category: Medical Plan: Avoid fried foods, chicken skin, eggs, butter margarine, pastries and meat. Be it pork or beef they have a lot of cholesterol patient on simvastatin 40 mg once a day (4) Hypertension: Code(s): I10 - Essential (primary) hypertension Category: Medical Qualifiers: Hypertension type: essential hypertension Qualified Code(s): I10 - Essential (primary) hypertension Plan: Continue with blood pressure medication. Decrease salt intake and exercise on lisinopril 10 mg once a day carvedilol 25 mg twice a day spironolactone 25 mg once a day (5) Factor 5 Leiden mutation, heterozygous: Code(s): D68.51 - Activated protein C resistance Category: Medical Plan: Continue with anticoagulation (6) Impaired glucose tolerance: Code(s): R73.02 - Impaired glucose tolerance (oral) Category: Medical Plan: Decrease the amount of carbohydrate intake, pasta, bread, rice and potatoes are all sugar and that is aside from all the sweet stuff, remember that fruits are good but they are Sweet also. Will need to repeat fasting blood sugar (7) Hypothyroid: Code(s): E03.9 - Hypothyroidism, unspecified Category: Medical Qualifiers: Hypothyroidism type: acquired Qualified Code(s): E03.9 - Hypothyroidism, unspecified Plan: Continue with thyroid medication (8) Osteopenia: Code(s): M85.80 - Other specified disorders of bone density and structure, unspecified site Category: Medical Plan: Up-to-date with bone density (9) Obesity (BMI 30-39.9): Code(s): E66.9 - Obesity, unspecified Category: Medical Plan: Diet and exercise (10) History of left breast cancer: Comment: 2012 Code(s): Z85.3 - Personal history of malignant neoplasm of breast Category: Medical Plan: Mammogram is due (11) Generalized anxiety disorder: Code(s): F41.1 - Generalized anxiety disorder Category: Medical Plan: Stable Plan History of Present Illness The patient is a 69-year-old female presenting for an annual wellness visit. She has a history of cardiomyopathy, hypercholesterolemia, hypothyroidism, Factor V Leiden, hypertension, and impaired glucose tolerance. Additionally, she has generalized anxiety disorder, osteopenia, and a history of left breast cancer diagnosed in 2012. The patient underwent a colonoscopy in June 2024, which was advised to be repeated every five years. Her last mammogram is due, and her bone density was normal as of December 2023. Her last blood work in May showed normal blood count, normal electrolytes, and normal renal function. Her fasting blood sugar was 127 mg/dL, with a hemoglobin A1c of 6.0%. Triglycerides were 221 mg/dL, and LDL cholesterol was 74 mg/dL. The patient is on simvastatin for cholesterol management, lisinopril, carvedilol, and spironolactone for hypertension, and continues anticoagulation therapy. She also takes thyroid medication and vitamin D supplements. She reports no new diagnoses or surgeries since her last visit. She consumes alcohol occasionally, approximately twice a month, and does not smoke. She engages in swimming as a form of exercise. Health Maintenance - Mammogram is due - Bone density normal as of December 2023 - Colonoscopy completed in June 2024, advised every five years - Up to date with vaccinations including shingles, tetanus, and pneumonia - Encouraged to maintain a healthy diet and exercise regimen, including swimming Social History - Alcohol consumption: Occasional, approximately twice a month - Smoking status: Non-smoker - Exercise: Engages in swimming Review of Systems - General: Denies dizziness, nausea, vomiting, or fever - Cardiovascular: Denies chest pain, palpitations, or dyspnea - Respiratory: Denies shortness of breath or cough - Gastrointestinal: Denies heartburn, reports normal bowel movements - Genitourinary: Denies dysuria or nocturia - Neurological: Denies headaches or syncope Physical Exam General: Cooperative, healthy appearing, comfortable, no acute distress and well developed Orientation: Patient oriented x3 Limitations: No limitations Head: Normal to inspection Ears: Hearing grossly normal bilaterally Nose: Normal external nose present Face and sinus: Normal facial exam Eyes: Appearance normal, both eyes and all related structures Neck: Normal visual inspection and Yes full ROM Respiratory: Normal respiratory effort and able to speak in complete sentences. Clear to auscultation bilaterally Cardiovascular: Regular rate and rhythm. Normal S1 and S2 GI: Normal to inspection. Soft to palpation and nontender Skin: No rashes or lesions noted Neuro: Patient oriented x3 Extremities: Normal to inspection Results - Labs: Normal blood count, normal electrolytes, normal renal function - Labs: Fasting blood sugar 127 mg/dL, hemoglobin A1c 6.0% - Labs: Triglycerides 221 mg/dL, LDL cholesterol 74 mg/dL Plan The patient will continue her current medication regimen, including simvastatin for cholesterol management, lisinopril, carvedilol, and spironolactone for hypertension, and anticoagulation therapy. Her thyroid medication will be maintained, and vitamin D supplementation will continue as needed. A repeat fasting blood sugar test will be conducted to monitor her glucose levels, given the previous reading of 127 mg/dL. The patient is advised to maintain a healthy diet and engage in regular exercise, including swimming, to manage her weight and overall health. Preventative care measures include scheduling a mammogram, which is currently due, and ensuring that her vaccinations remain up to date. The patient is also encouraged to follow up with cardiology as needed. Patient was informed and verbally consented to the use of an ambient scribe for clinic note documentation during this visit. Discussion Notes During the visit, I discussed with the patient the importance of maintaining her current medication regimen and the need for a repeat fasting blood sugar test to monitor her glucose levels. We also reviewed the necessity of scheduling a mammogram and keeping her vaccinations up to date. I emphasized the benefits of a healthy diet and regular exercise, including swimming, to support her overall health. Patient Instructions - Continue taking all prescribed medications as directed. - Schedule a mammogram as soon as possible. - Maintain a healthy diet and engage in regular exercise, such as swimming. - Follow up with cardiology as needed. - Repeat fasting blood sugar test as instructed. - Ensure vaccinations are up to date. Orders: Orders Hemoglobin A1c Today R73.02 - Impaired glucose tolerance (oral) Thyroid Stimulating Hormone Today R73.02 - Impaired glucose tolerance (oral) Comprehensive Met. Panel Today R73.02 - Impaired glucose tolerance (oral) Lipid Panel Today E78.00 - Pure hypercholesterolemia, unspecified, R73.02 - Impaired glucose tolerance (oral) Free T4 (Free Thyroxine) Today R73.02 - Impaired glucose tolerance (oral)
== END 2024-12-20 09:53 | disposition home or self-care (01) ==
LOC: HO.HMCH 09:20
PROVIDERS: PCP Internal Medicine; Visit Provider Internal Medicine
DX: Z00.00 Encounter for general adult medical examination without abnormal findings (principal); I42.0 Dilated cardiomyopathy; E66.9 Obesity, unspecified; Z68.33 Body mass index [BMI] 33.0-33.9, adult; E78.00 Pure hypercholesterolemia, unspecified; I10 Essential (primary) hypertension; D68.51 Activated protein C resistance; R73.02 Impaired glucose tolerance (oral); E03.9 Hypothyroidism, unspecified; M85.80 Other specified disorders of bone density and structure, unspecified site; Z85.3 Personal history of malignant neoplasm of breast; F41.1 Generalized anxiety disorder

== ENCOUNTER → 2024-12-20 09:20 | Outpatient (BNVA) | payer MEDICARE, SELFPAY | PROVIDERS: PCP Internal Medicine; Visit Provider Internal Medicine | DX: Z00.00 Encounter for general adult medical examination without abnormal findings (principal); I42.0 Dilated cardiomyopathy; E78.00 Pure hypercholesterolemia, unspecified; I10 Essential (primary) hypertension; D68.51 Activated protein C resistance; R73.02 Impaired glucose tolerance (oral); E03.9 Hypothyroidism, unspecified; M85.80 Other specified disorders of bone density and structure, unspecified site; E66.9 Obesity, unspecified; Z41.1 Encounter for cosmetic surgery; Z85.3 Personal history of malignant neoplasm of breast; Z79.899 Other long term (current) drug therapy | CPT/HCPCS: 96127; 99397 ==

== ENCOUNTER 2025-04-06 09:40 | Outpatient (REF) | payer MEDICARE, SELFPAY ==
[2025-04-06 11:49] LABS: Alanine Aminotransferase 22 U/L (0-31); Albumin Level 4.8 g/dL (3.5-5.0); Alkaline Phosphatase 93 U/L (39-117); Anion Gap 11 (12-20); Aspartate Amino Transferase 31 U/L (5-31); Blood Urea Nitrogen 15 mg/dL (9-16); Calcium 9.5 mg/dL (8.4-10.2); Carbon Dioxide 27 mmol/L (22-29); Chloride 109 mmol/L (96-108); Cholesterol 168 mg/dL (<200); Estimated Glomerular Filt Rate > 60; HDL Cholesterol 40 mg/dL (>40); Potassium 4.5 mmol/L (3.3-5.1); Sodium 142 mmol/L (135-145); Total Protein 7.2 g/dL (6.5-8.0); Triglycerides 242 mg/dL (<150)
[2025-04-06 11:51] LABS: Free T4 (Free Thyroxine) 1.06 ng/dL (0.71-1.85); Thyroid Stimulating Hormone 1.38 uIU/mL (0.32-4.0)
== END 2025-04-06 09:41 | disposition home or self-care (01) ==
LOC: HO.LAB 09:40
PROVIDERS: PCP Internal Medicine; Visit Provider Internal Medicine
DX: R73.02 Impaired glucose tolerance (oral) (principal); E78.00 Pure hypercholesterolemia, unspecified
CPT/HCPCS: 36415; 80053; 80061; 83036; 84439; 84443

== ENCOUNTER 2025-04-08 14:22 | Outpatient (AMB) | payer MEDICARE, SELFPAY ==
[2025-04-08 14:26] VITALS: BP 130/68; PULSE 64; O2SAT 98; BMI 32.8
--- NOTE | 2025-04-08 14:26 | MHC.PC.OV ---
Vital Signs 04/08/25 14:26 Height 5 ft 4 in Weight 191 lb BMI 32.8 BP 130/68 Blood Pressure Location Lt brachial Position Sitting Pulse 64 Pulse Source Pulse Oximeter Pulse Oximetry (%) 98 Oxygen Delivery Method Room Air Intake Visit Reasons: IGT Allergies levofloxacin (From Levaquin) Allergy (Mild, Verified 04/08/25 14:26) NAUSEA,WEAKNESS penicillin G (Penicillin G) Allergy (Mild, Verified 04/08/25 14:26) breathing issue as a child penicillin V Allergy (Unknown, Verified 04/08/25 14:26) breathing issue as a child Tobacco use date assessed: 12/20/24 Fall risk assessment: No Falls in past year Last assessed Fall Risk: 04/08/25 Dental Screening Dental Screen Date: 12/20/24 [facility] Medical History Urinary incontinence Murmur Anxiety Left bundle branch block DVT (deep venous thrombosis) Generalized anxiety disorder Adult general medical exam Ductal carcinoma in situ (DCIS) of left breast Impaired glucose tolerance Hypertension Factor 5 Leiden mutation, heterozygous Hypothyroid Hypercholesterolemia Left renal stone Obesity (BMI 30-39.9) Asthma Cardiomyopathy Surgical History Hx of hand surgery Hx of cardiac catheterization History of colonoscopy History of urologic surgery History of surgery History of lithotripsy History of carpal tunnel release History of foot surgery History of lumpectomy of left breast History of cataract surgery Family History Father Myocardial infarction Mother No problems noted. Maternal Grandfather Myocardial infarction CVD (cardiovascular disease) Maternal Uncle Myocardial infarction CVD (cardiovascular disease) Brother In good health Sister In good health Mental health disorder Sister In good health Son In good health Substance use disorder Son In good health Social History Housing: House Alcohol intake: current Alcohol intake frequency: does not drink Comment: twice a month1 glass Patient Tobacco Use Status: Never used Tobacco Tobacco use type: Cigarette e-Cigarette/Vaping Use: Never Used Second Hand Smoke Exposure: No service: No Current occupational status: employed Cognitive needs: No Hearing needs: No Vision needs: No Questionnaire Thrive Questionnaire Date Thrive assessed: 12/13/24 I am a: Patient What is your living situation today?: I have a steady place to live Within the past 12 months, did the food you bought not last and you didn't have the money to get more?: Never true Within the past 12 months, did you worry whether your food would run out before you got money to buy more?: Never true Do you have trouble paying for medicines?: No Do you have trouble getting transportation to medical appointments?: No Do you have trouble paying your heating and electricity bill?: No Do you have trouble taking care of your child, family member or friend?: No Do you have trouble with day-to-day activities such as bathing, preparing meals, shopping, managing finances, etc.?: No Are you currently unemployed and looking for a job?: No Are you interested in more education?: No Please select the resources that you would like help with: None Currently or been in a relationship where the following occur: No concerns reported THRIVE Score: 0 SALAS-7 AMB Questionnaire SALAS-7 Date SALAS - 7 assessed: 12/20/24 Source: Developed by Drs. Momo Zhang, Samia Mckeon, Ilan Bhakta and colleagues, with an educational esau from [employer]. Physical exam (Primary Care) Vital Signs: Last Vital Signs Pulse 64 04/08/25 14:26 BP 130/68 04/08/25 14:26 Pulse Ox 98 04/08/25 14:26 Oxygen Delivery Method Room Air 04/08/25 14:26 BMI result Body Mass Index 32.8 Tobacco/Smoking Status: Tobacco use Status Tobacco use date assessed 12/20/24 04/08/25 14:29 Patient Tobacco Use Status Never used Tobacco 04/08/25 14:29 Tobacco use type Cigarette 04/08/25 14:29 e-Cigarette/Vaping Use Never Used 04/08/25 14:29 Thrive Assessment: Date of Thrive Assessment Date Thrive assessed 12/13/24 04/08/25 14:29 Currently or been in a relationship where the following occur: No concerns reported Const General: alert; No acute distress Eyes Conjunctivae: conjunctivae normal Resp Auscultation: clear to auscultation bilaterally Cardio Rate: regular rate Rhythm: regular rhythm GI Inspection: Yes normal to inspection Extrem General: Yes normal to inspection and No edema Coding Level of Care Code Est Pt Level 4 (53566) Complex EM visit Add On G2211 Diagnoses Essential hypertension I10 Hypertension type: essential hypertension Hypercholesterolemia E78.00 Factor 5 Leiden mutation, heterozygous D68.51 Impaired glucose tolerance R73.02 Acquired hypothyroidism E03.9 Hypothyroidism type: acquired Obesity (BMI 30-39.9) E66.9 History of left breast cancer Z85.3 Assessment & Plan Assessment & Plan (1) Hypertension: Code(s): I10 - Essential (primary) hypertension Category: Medical Qualifiers: Hypertension type: essential hypertension Qualified Code(s): I10 - Essential (primary) hypertension Plan: Continue with blood pressure medication. Decrease salt intake and exercise patient is taking lisinopril 10 mg once a day spironolactone 25 mg once a day and carvedilol 25 mg twice a day (2) Hypercholesterolemia: Code(s): E78.00 - Pure hypercholesterolemia, unspecified Category: Medical Plan: Avoid fried foods, chicken skin, eggs, butter margarine, pastries and meat. Be it pork or beef they have a lot of cholesterol on simvastatin 40 mg once a day (3) Factor 5 Leiden mutation, heterozygous: Code(s): D68.51 - Activated protein C resistance Category: Medical Plan: Continuing with anticoagulation (4) Impaired glucose tolerance: Code(s): R73.02 - Impaired glucose tolerance (oral) Category: Medical Plan: Decrease the amount of carbohydrate intake, pasta, bread, rice and potatoes are all sugar and that is aside from all the sweet stuff, remember that fruits are good but they are Sweet also. (5) Hypothyroid: Code(s): E03.9 - Hypothyroidism, unspecified Category: Medical Qualifiers: Hypothyroidism type: acquired Qualified Code(s): E03.9 - Hypothyroidism, unspecified Plan: Continue with thyroid medication (6) Obesity (BMI 30-39.9): Code(s): E66.9 - Obesity, unspecified Category: Medical Plan: Diet and exercise (7) History of left breast cancer: Comment: 2012 Code(s): Z85.3 - Personal history of malignant neoplasm of breast Category: Medical Plan: Patient is reminded about mammogram Plan History of Present Illness The patient is a 70-year-old female presenting for a follow-up visit. The patient has a history of obesity and has noted a slight weight loss recently, which is significant given her cardiomyopathy diagnosis. She also has a history of hypothyroidism and hypercholesterolemia, which are being managed with medication. The patient has Factor V Leiden, a genetic condition that increases the risk of blood clots, and atherosclerosis, which is being monitored. She also has hypertension and impaired glucose tolerance, with her blood sugar levels being closely monitored. The patient has a history of generalized anxiety disorder and nephrolithiasis, which have been managed without recent complications. In 2012, she was diagnosed with left breast cancer and is currently following up with regular mammograms. Her last blood work in May 2024 showed normal blood counts and no anemia, with electrolytes and renal function remaining stable. Her hemoglobin A1c was 6.1, indicating impaired glucose tolerance, and her triglycerides were elevated at 242 mg/dL, though her LDL cholesterol was at a desirable level of 80 mg/dL. The patient is currently on lisinopril, spironolactone, simvastatin, and carvedilol for her cardiovascular conditions, and continues anticoagulation therapy due to her Factor V Leiden. She is also on thyroid medication and is advised to maintain a healthy diet and exercise regimen. 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 - Cognitive activity: Reads books and plays games to stay mentally active Review of Systems - Cardiovascular: Denies chest pain, reports no issues with breathing - Genitourinary: Denies urinary problems or swelling - Ophthalmologic: Reports vision is up-to-date with recent eye exam Physical Exam - Respiratory: Normal breathing observed - Genitourinary: No issues with urination reported Results - Labs: Normal blood count, no anemia (May 2024) - Labs: Electrolytes normal, renal function normal, blood sugar 120 mg/dL, hemoglobin A1c 6.1 (March 2025) - Labs: Triglycerides elevated at 242 mg/dL, LDL cholesterol at 80 mg/dL Plan Patient was informed and verbally consented to the use of an ambient scribe for clinic note documentation during this visit. 1. Obesity The patient is advised to maintain a healthy diet and engage in regular physical activity to manage her weight. 2. Cardiomyopathy The patient is on carvedilol 25 mg twice a day to manage her cardiomyopathy. 3. Hypothyroidism The patient continues with her thyroid medication, and her thyroid levels are stable. 4. Hypercholesterolemia The patient is on simvastatin 40 mg once a day to manage her cholesterol levels. 5. Factor V Leiden The patient continues anticoagulation therapy due to her Factor V Leiden condition. 6. Atherosclerosis The patient is advised to continue her current medication regimen to manage atherosclerosis. 7. Hypertension The patient is on lisinopril 10 mg once a day and spironolactone 25 mg once a day for hypertension management. 8. Impaired Glucose Tolerance The patient's blood sugar levels are being monitored, and she is advised to maintain a healthy diet and exercise regimen. 9. Generalized Anxiety Disorder The patient is advised to continue her current management plan for anxiety. 10. Nephrolithiasis The patient is advised to maintain adequate hydration to prevent recurrence of kidney stones. 11. Breast Cancer (Left, 2012) The patient is following up with regular mammograms to monitor for recurrence. Discussion Notes During the visit, we discussed the management of the patient's multiple chronic conditions, including the importance of medication adherence and lifestyle modifications such as diet and exercise. We reviewed her recent lab results, noting the need to address elevated triglycerides and maintain control of her blood sugar levels. The patient was reminded about the importance of regular follow-ups and screenings, including mammograms and colonoscopies, to monitor her health status. Patient Instructions - Continue taking all prescribed medications as directed. - Maintain a healthy diet and engage in regular physical activity. - Schedule and attend regular follow-up appointments and screenings, including mammograms and colonoscopies. - Monitor blood sugar levels and report any significant changes. - Stay hydrated to prevent kidney stones. Orders: Orders Complete Blood Count Auto Diff 6 Months I10 - Essential (primary) hypertension Thyroid Stimulating Hormone 6 Months I10 - Essential (primary) hypertension Vitamin D 25-OH Total 6 Months I10 - Essential (primary) hypertension Magnesium 6 Months I10 - Essential (primary) hypertension Free T4 (Free Thyroxine) 6 Months I10 - Essential (primary) hypertension Comprehensive Met. Panel 6 Months I10 - Essential (primary) hypertension Lipid Panel 6 Months E78.00 - Pure hypercholesterolemia, unspecified, I10 - Essential (primary) hypertension Vitamin B12 and Folate 6 Months I10 - Essential (primary) hypertension UA CC w/rflx Micro + Cult 6 Months I10 - Essential (primary) hypertension, R30.0 - Dysuria
== END 2025-04-08 14:50 | disposition home or self-care (01) ==
LOC: HO.HMCH 14:22
PROVIDERS: PCP Internal Medicine; Visit Provider Internal Medicine
DX: I10 Essential (primary) hypertension (principal); E78.00 Pure hypercholesterolemia, unspecified; D68.51 Activated protein C resistance; R73.02 Impaired glucose tolerance (oral); E03.9 Hypothyroidism, unspecified; E66.9 Obesity, unspecified; Z85.3 Personal history of malignant neoplasm of breast

== ENCOUNTER → 2025-04-08 14:22 | Outpatient (BNVA) | payer MEDICARE, SELFPAY | PROVIDERS: PCP Internal Medicine; Visit Provider Internal Medicine | DX: I10 Essential (primary) hypertension (principal); E78.00 Pure hypercholesterolemia, unspecified; D68.51 Activated protein C resistance; R73.02 Impaired glucose tolerance (oral); E03.9 Hypothyroidism, unspecified; E66.9 Obesity, unspecified; Z68.32 Body mass index [BMI] 32.0-32.9, adult; I42.9 Cardiomyopathy, unspecified; F41.1 Generalized anxiety disorder; N20.0 Calculus of kidney; Z85.3 Personal history of malignant neoplasm of breast; Z79.01 Long term (current) use of anticoagulants; Z79.899 Other long term (current) drug therapy | CPT/HCPCS: 99212 ==